=== PATIENT | female | born 1950 | race Caucasian/White ===

== ENCOUNTER 2018-09-14 16:06 | Inpatient (IN) | payer OTHER ==
--- NOTE | 2018-09-14 17:13 | PDOC ---
History of Present Illness - General Chief Complaint: Shortness of Breath Stated Complaint: shortness of breath and palpitations Time Seen by Provider: 09/14/18 16:08 History Source: Patient Exam Limitations: No Limitations - History of Present Illness Initial Comments: 09/14/18 17:00 67 yo female pmh of HTN, HLD, hypothyroidism, s/p left breast lumpectomy with chemo/radiation and metastatic chemistry associate CA (scheduled for surgery 09/22/2018 at [facility] for resection, stopped taking ASA 1 week ago) presents to the ED for 4 days of worsening SOB on exertion. Pt states she has had mild SOB when walking up flights of stairs in the past, however over the last 4 days, walking 1 block has led to SOB with palpitations. Denies CP, back pain, recent travel, calf tenderness, N/V/F/C, abdominal pain, BALBUENA, dizziness, diaphoresis. Past History - Past Medical History Allergies/Adverse Reactions: Allergies Allergy/AdvReac Type Severity Reaction Status Date / Time No Known Allergies Allergy Verified 09/14/18 16:08 Home Medications: Ambulatory Orders Anastrozole [Arimidex] 1 mg PO DAILY 09/14/18 Atenolol/Chlorthalidone [Atenolol-Chlorthalidone 100-25] 1 each PO DAILY Levothyroxine [Synthroid -] 25 mcg PO DAILY 09/14/18 Omeprazole 20 mg PO DAILY 09/14/18 Rosuvastatin [Crestor -] 5 mg PO HS 09/14/18 Cancer: Yes (uterus scheduled for sx on 10/22/18) COPD: No GI Disorders: Yes (GERD) HTN: Yes Hypercholesterolemia: Yes Thyroid Disease: Yes - Suicide/Smoking/Psychosocial Hx Smoking History: Never smoked Hx Alcohol Use: No Drug/Substance Use Hx: No Review of Systems - Review of Systems Constitutional: No: Chills, Fever Respiratory: Yes: SOB with Exertion. No: Wheezing, Productive cough, Hemoptysis Cardiac (ROS): Yes: Palpitations (on exertion). No: Chest Pain ABD/GI: No: Constipated, Diarrhea, Nausea, Vomiting, Abdominal cramping : No: Burning, Dysuria, Flank Pain Musculoskeletal: No: Back Pain Neurological: No: Headache, Numbness, Tingling, Unsteady Gait *Physical Exam - Vital Signs Last Vital Signs Temp Pulse Resp BP Pulse Ox 97.7 F 83 20 132/72 95 09/14/18 16:07 09/14/18 16:07 09/14/18 16:07 09/14/18 16:07 09/14/18 16:07 - Physical Exam General Appearance: Yes: Nourished, Appropriately Dressed. No: Apparent Distress HEENT: positive: EOMI Neck: positive: Supple. negative: Carotid bruit Respiratory/Chest: positive: Lungs Clear, Normal Breath Sounds. negative: Accessory Muscle Use, Crackles, Rales, Rhonchi, Stridor, Wheezing Cardiovascular: positive: Regular Rhythm, Regular Rate, S1, S2. negative: Edema , JVD, Murmur Vascular Pulses: Dorsalis-Pedis (R): 3+, Doralis-Pedis (L): 3+ Gastrointestinal/Abdominal: positive: Flat, Soft. negative: Pulsatile Mass, Protuberent, Distended, Guarding, Rebound, Tenderness Extremity: positive: Normal Capillary Refill, Swelling (right calf larger than left) Integumentary: positive: Normal Color, Dry, Warm. negative: Diaphoresis Neurologic: positive: Fully Oriented, Alert, Normal Mood/Affect, Normal Response ED Treatment Course - LABORATORY CBC & Chemistry Diagram: 09/19/18 05:30 09/19/18 05:30 Medical Decision Making - Medical Decision Making 09/14/18 19:10 67 yo female pmh of HTN, HLD, hypothyroidism, s/p left breast lumpectomy with chemo/radiation and metastatic chemistry associate CA (scheduled for surgery 09/22/2018 at [facility] for resection, stopped taking ASA 1 week ago) presents to the ED for 4 days of worsening SOB on exertion. Pt states she has had mild SOB when walking up flights of stairs in the past, however over the last 4 days, walking 1 block has led to SOB with palpitations. Denies CP, back pain, recent travel, calf tenderness, N/V/F/C, abdominal pain, BALB[place], dizziness, diaphoresis. Vitals wnl DDX INLT: DVT/PE, CHF, ACS, DVT right common femoral and deep vein found Trop elevated BNP 4000s Pt saturating 92 on RA, 98-100 on 2L CTA ordered to r/o PE 09/14/18 19:44 Bilateral pulmonary PE noted on ED CTA read with evidence of right heart strain , pt given Lovenox weight based, ICU call placed and [employer] sent. Pending response from admitting team Pt aware, vitals continue to be stable Pt s/o to night team for further care *DC/Admit/Observation/Transfer Diagnosis at time of Disposition: Pulmonary embolism, DVT (deep venous thrombosis) - Discharge Dispostion Disposition: TRANSFER ACUTE CARE/OTHER HOSP Condition at time of disposition: Guarded - Referrals - Patient Instructions - Post Discharge Activity
--- NOTE | 2018-09-14 17:13 | PDOC ---
Attending Attestation - Resident Resident Name: Porfirio Nelson - ED Attending Attestation I have performed the following: I have examined & evaluated the patient, The case was reviewed & discussed with the resident, I agree w/resident's findings & plan, Exceptions are as noted - HPI HPI: 09/14/18 16:30 67yo F hx HTN, HL, hypothyroidism, breast ca s/p lumpectomy, chemo and radiation , metastic [employer] cancer (unknown primary) with mets to the omentum presents to the ED with progressive SOB x 4 days. Pt reports exercise tolerance is reduced to a block which is abnormal for her as she can normally walk a quarter mile to work without any issues. +associated palpitations. Denies CP, back pain, dizziness, N/V/D, abd pain, LE edema, focal weakness/numbness, headache. Pt states she is due to have surgery for her [employer] cancer at [facility] [place] on 09/22. She had a CT chest recently to r/o metastasis in - Physicial Exam PE: 09/14/18 16:38 GENERAL: Awake, alert, and fully oriented, in no acute distress. Speaking in full sentences HEAD: No signs of trauma EYES: PERRLA, EOMI, sclera anicteric, conjunctiva clear ENT: Moist mucosa LUNGS: Breath sounds equal, clear to auscultation bilaterally. No wheezes, and no crackles. Tachypneic to 25 HEART: Regular rate and rhythm, normal S1 and S2, no murmurs, rubs or gallops ABDOMEN: Soft, nontender, normoactive bowel sounds. No guarding, no rebound. No masses EXTREMITIES: R>L LE non pitting edema, WWP NEUROLOGICAL: Normal speech, cranial nerves intact, equal strength and sensation b/l SKIN: Warm, Dry, normal turgor, no rashes or lesions noted. - Critical Care Time Total Critical Care Time: 60 Critical Care Statement: The care of this patient involved high complexity decision making to prevent further life threatening deterioration of the patient 's condition and/or to evaluate & treat vital organ system(s) failure or risk of failure. - Medical Decision Making 09/14/18 16:44 67yo F hx metastatic [employer] ca currently undergoing w/u at [facility] presents to the ED with progressive CAAL for 4 days Pt tachypneic to 20s, but no tachycardia, hypoxia or hypotension Exam with R>L LE edema EKG with lateral ischemia, no ANA History/presentation highly concerning for DVT/PE Plan for labs, B/l LE DVT, CTA chest, likely admit 09/14/18 18:14 Labs thus far unremarkable CTA ordered, radiology tach has been called in from home Pt is hemodynamically stable, BP 138/84, HR 74, O2 sat 100% 2L, RR 20 09/14/18 18:38 Trop+ 1, likely 2/2 RHS from presumed PE 09/14/18 18:40 US + for R common and deep femoral vein DVTs In light of metastatic disease, will obtain CTH to eval for brain mets prior to initiating AC Pt remains hemodynamically stable, BP 124/80, HR 78, O2 sat 100% 2L, RR 24 Spoke 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 Lovenox 1mg/kg ordered All results explained to pt Awaiting CTA chest images, pt likely to need transfer to [facility] ICU Pt remains hemodynamically stable, BP 130/80, HR 80, O2 sat 100% 2L, RR 24 Case signed out to Dr. Mao for further mgmt/dispo Heart Score/ECG Review - History History: Slightly suspicious - Electrocardiogram EKG: Non specific repolarization disturbance - Age Age: >/= 65 - Risk Factors Risk Factors Heart Score: Yes Hx Hypercholesterolemia, Yes Hx Hypertension, Yes Hx Obesity Based on the list above the patient has:: >/=3 risk factors or Hx atherosclerotic disease - Troponin Troponin: </= normal limit - Score Heart Score - Total: 5 #1 09/14/18 16:50 EKG read and interpreted by me: NSR, rate 86. Normal axis and intervals. +sub mm to 1mm STD V4-V6
[2018-09-14 17:32] LABS: HEMATOCRIT 35.6 % (32.4-45.2); HEMOGLOBIN 12.1 GM/dl (10.7-15.3); MEAN CELL VOLUME 88.2 fl (80-96); MEAN PLT VOLUME 7.7 fl (7.5-11.1); PLATELET COUNT 284 K/MM3 (134-434); RBC 4.03 M/mm3 (3.60-5.2); RDW 13.7 % (11.6-15.6); WHITE BLOOD COUNT 17.2 K/mm3 (4.0-10.8)
[2018-09-14 17:43] LABS: ACTIVATED PTT 25.8 SECONDS (25.2-36.5)
[2018-09-14 17:44] LABS: MAGNESIUM 1.7 mg/dL (1.8-2.4)
[2018-09-14 17:45] LABS: ALBUMIN 3.2 g/dl (3.4-5.0); ALK PHOS 108 U/L (45-117); ANION GAP 13 MMOL/L (8-16); BILIRUBIN,TOTAL 1.3 mg/dl (0.2-1); BLOOD UREA NITROGEN 11 mg/dl (7-18); CALCIUM 8.7 mg/dl (8.5-10); CHLORIDE 99 mmol/L (98-107); CO2 25 mmol/L (21-32); CREATININE 0.8 mg/dl (0.55-1.3); GLUCOSE,RANDOM 100 mg/dl (74-106); POTASSIUM 3.5 mmol/L (3.5-5.1); SGOT/AST 39 U/L (15-37); SGPT/ALT 17 U/L (13-61); SODIUM 137 mmol/L (136-145)
[2018-09-14 17:48] LABS: INR 1.34 (0.82-1.09); PROTHROMBIN TIME (PATIENT) 14.9 SEC (10.2-13.0)
[2018-09-14 18:48] LABS: VENOUS PC02 38.5 mmHg (41-51); VENOUS PH 7.46 (7.31-7.41)
[2018-09-14 18:49] LABS: VENOUS PO2 25.1 mmHg (30-40)
[2018-09-14 18:58] LABS: N-TERMINAL BNP 4094.3 pg/ml (5-125)
[2018-09-14] MEDS ORDERED: ENOXAPARIN NA (PORCINE) 100 MG/1 ML DISP.SYRIN SQ ONE ×2 (19:08→19:20)
[2018-09-14 19:16] LABS: PLATELET ESTIMATE ADEQUATE
--- NOTE | 2018-09-14 19:27 | PDOC ---
*Physical Exam - Vital Signs Last Vital Signs Temp Pulse Resp BP Pulse Ox 97.7 F 83 34 H 144/87 99 09/14/18 16:07 09/14/18 19:01 09/14/18 19:01 09/14/18 19:01 09/14/18 19:01 ED Treatment Course - LABORATORY CBC & Chemistry Diagram: 09/14/18 17:03 09/14/18 17:03 - ADDITIONAL ORDERS Additional order review: Laboratory Results 09/14/18 09/14/18 09/14/18 17:03 17:03 17:03 PT with INR 14.9 H INR 1.34 H PTT (Actin FS) 25.8 VBG pH POC VBG pCO2 POC VBG pO2 VBG HCO3 VBG O2 Sat (Carter) VBG Base Excess Sodium Potassium Chloride Carbon Dioxide Anion Gap BUN Creatinine Creat Clearance w eGFR Random Glucose Calcium Magnesium 1.7 L Total Bilirubin AST ALT Alkaline Phosphatase Creatine Kinase 93 Troponin I 1.10 H* B-Natriuretic Peptide Total Protein Albumin TSH 3.86 H 09/14/18 09/14/18 17:03 17:03 PT with INR INR PTT (Actin FS) VBG pH 7.46 H POC VBG pCO2 38.5 L POC VBG pO2 25.1 L VBG HCO3 26.8 VBG O2 Sat (Carter) 37.6 L VBG Base Excess 3.3 H Sodium 137 Potassium 3.5 Chloride 99 Carbon Dioxide 25 Anion Gap 13 BUN 11 Creatinine 0.8 Creat Clearance w eGFR 71.76 Random Glucose 100 Calcium 8.7 Magnesium Total Bilirubin 1.3 H AST 39 H ALT 17 Alkaline Phosphatase 108 Creatine Kinase Troponin I B-Natriuretic Peptide 4094.3 H Total Protein 8.0 Albumin 3.2 L TSH 09/14/18 17:03 RBC 4.03 MCV 88.2 MCHC 34.0 RDW 13.7 MPV 7.7 Neutrophils % No Result Required. Lymphocytes % No Result Required. Medical Decision Making - Medical Decision Making 09/14/18 20:22 Care of this patient received from Dr Phillip. This 67-year-old woman with a history of HTN/HL/hypothyroidism presented with progressive shortness of breath over the last few days. Patient is currently being worked up for pelvic carcinoma of unclear etiology: Exploratory procedure scheduled for 09/22/18 and [facility]. Workup for thromboembolic process positive for right lower extremity DVT. Chest CT angiogram positive for acute central pulmonary emboluism with findings of right heart strain Findings discussed with Dr. Valiente. Noncontrast head CT of the head shows no evidence of masses or other intracranial pathology. Lovenox 100mg SQ administered Case discussed with : Because patient has been clinically stable from vascular and respiratory standpoint with no need for fluid resuscitation up to this point, although she has extensive thromboembolic pulmonary burden and potential for cardiovascular collapse, she does not strictly need ICU monitoring at this point. Patient can be admitted to telemetry bed at [facility] with ICU resident aware. Plan discussed with Dr Etienne who is not comfortable with patient not being in an intensive care unit . Consideration made to transfer to tertiary care center ,[facility] 09/14/18 20:37 Dr Cowan reconsidered decision and patient will be admitted to the ICU at [facility]. Most recent vital signs: BP 112/86, HR 80/min, pulse oximetry 97% 2 liter/minNC 09/14/18 21:16 Patient transferred awake and alert without complaints and without change in clinical condition by ALS ambulance to ICU, [facility] *DC/Admit/Observation/Transfer Diagnosis at time of Disposition: Pulmonary embolism Qualifiers: Pulmonary embolism type: other Chronicity: acute Acute cor pulmonale presence: without acute cor pulmonale Qualified Code(s): I26.99 - Other pulmonary embolism without acute cor pulmonale DVT (deep venous thrombosis) Qualifiers: DVT location: lower extremity Affected thrombotic vein of extremity: unspecified vein of extremity Chronicity: acute Laterality: right Qualified Code (s): I82.401 - Acute embolism and thrombosis of unspecified deep veins of right lower extremity - Discharge Dispostion Disposition: TRANSFER ACUTE CARE/OTHER HOSP Condition at time of disposition: Guarded Decision to Admit order: Yes - Referrals - Patient Instructions - Post Discharge Activity
--- NOTE | 2018-09-14 22:31 | HP ---
CHIEF COMPLAINT: shortness of breath PCP: HISTORY OF PRESENT ILLNESS: 67 year woman w/ remote breast ca Hx s/p lumpectomy, recently diagnosed [employer] cancer (planned surgery at [place] on 09/22/18), c/o SOB and decreased exercise tolerance for the last several days. Patient was found to be hypoxic and tachycardic in [place] ER. Lower ext duplex scan showed right lower ext DVT and right pulm artery PE. Patient is hemodynamically stable and appears comfortable. Treated with Lovenox therapeutic dose. ER course was notable for: (1) CTA (2) lower ext duplex (3) Recent Travel: no PAST MEDICAL HISTORY: recently diagnosed [employer] cancer-planned surgery at [place] on 09/22/18, remote Hx of left breast ca- s/p left lumpectomy, and radiation therapy PAST SURGICAL HISTORY: as above Social History: Smoking: quit 30 years ago Alcohol: no Drugs: no Family History: [place] Allergies No Known Allergies Allergy (Verified 09/14/18 16:08) HOME MEDICATIONS: Home Medications Medication Instructions Recorded Anastrozole [Arimidex] 1 mg PO DAILY 09/14/18 Atenolol/Chlorthalidone 1 each PO DAILY 09/14/18 [Atenolol-Chlorthalidone 100-25] Levothyroxine [Synthroid -] 25 mcg PO DAILY 09/14/18 Omeprazole 20 mg PO DAILY 09/14/18 Rosuvastatin [Crestor -] 5 mg PO HS 09/14/18 REVIEW OF SYSTEMS CONSTITUTIONAL: Absent: fever, chills, diaphoresis, generalized weakness, malaise, loss of appetite, weight change HEENT: Absent: rhinorrhea, nasal congestion, throat pain, throat swelling, difficulty swallowing, mouth swelling, ear pain, eye pain, visual changes CARDIOVASCULAR: Absent: chest pain, syncope, palpitations, irregular heart rate, lightheadedness , peripheral edema RESPIRATORY: Absent: cough, orthopnea, wheezing, stridor, hemoptysis Present- shortness of breath, dyspnea with exertion, GASTROINTESTINAL: Absent: abdominal pain, abdominal distension, nausea, vomiting, diarrhea, constipation, melena, hematochezia GENITOURINARY: Absent: dysuria, frequency, urgency, hesitancy, hematuria, flank pain, genital pain MUSCULOSKELETAL: Absent: myalgia, arthralgia, joint swelling, back pain, neck pain SKIN: Absent: rash, itching, pallor HEMATOLOGIC/IMMUNOLOGIC: Absent: easy bleeding, easy bruising, lymphadenopathy, frequent infections ENDOCRINE: Absent: unexplained weight gain, unexplained weight loss, heat intolerance, cold intolerance NEUROLOGIC: Absent: headache, focal weakness or paresthesias, dizziness, unsteady gait, seizure, mental status changes, bladder or bowel incontinence PSYCHIATRIC: Absent: anxiety, depression, suicidal or homicidal ideation, hallucinations. PHYSICAL EXAMINATION Vital Signs - 24 hr 09/14/18 09/14/18 09/14/18 16:07 17:26 17:36 Temperature 97.7 F Pulse Rate 83 Pulse Rate [ 83 Apical] Respiratory 20 32 H 26 H Rate Blood Pressure 132/72 Blood Pressure 125/86 [Arm] O2 Sat by Pulse 95 92 L 96 Oximetry (%) 09/14/18 09/14/18 19:01 19:31 Temperature Pulse Rate Pulse Rate [ 83 81 Apical] Respiratory 34 H 25 H Rate Blood Pressure Blood Pressure 144/87 124/85 [Arm] O2 Sat by Pulse 99 99 Oximetry (%) GENERAL: Awake, alert, and fully oriented, in no acute distress. HEAD: Normal with no signs of trauma. EYES: Pupils equal, round and reactive to light, extraocular movements intact, sclera anicteric, conjunctiva clear. No lid lag. EARS, NOSE, THROAT: Ears normal, nares patent, oropharynx clear without exudates. Moist mucous membranes. NECK: Normal range of motion, supple without lymphadenopathy, JVD, or masses. LUNGS: Breath sounds equal, clear to auscultation bilaterally. No wheezes, and no crackles. No accessory muscle use. HEART: Regular rate and rhythm, normal S1 and S2 , + systolic murmur ABDOMEN: Soft, nontender, not distended, normoactive bowel sounds, no guarding, no rebound, no masses. MUSCULOSKELETAL: Normal range of motion at all joints. No bony deformities or tenderness. No CVA tenderness. UPPER EXTREMITIES: 2+ pulses, warm, well-perfused. No cyanosis. No clubbing. No peripheral edema. LOWER EXTREMITIES: 2+ pulses, warm, well-perfused. No calf tenderness. No peripheral edema. NEUROLOGICAL: Cranial nerves II-XII intact. Normal speech. Normal gait. PSYCHIATRIC: Cooperative. Good eye contact. Appropriate mood and affect. SKIN: Warm, dry, normal turgor, no rashes or lesions noted, normal capillary refill. Laboratory Results - last 24 hr 09/14/18 09/14/18 09/14/18 17:03 17:03 17:03 WBC 17.2 H RBC 4.03 Hgb 12.1 Hct 35.6 MCV 88.2 MCH 30.0 MCHC 34.0 RDW 13.7 Plt Count 284 MPV 7.7 Absolute Neuts (auto) 14.2 Neutrophils % No Result Required. Neutrophils % (Manual) 92.0 H* Lymphocytes % No Result Required. Lymphocytes % (Manual) 6.0 L Monocytes % (Manual) 1 L Eosinophils % (Manual) 1.0 Platelet Estimate Adequate PT with INR INR PTT (Actin FS) VBG pH 7.46 H POC VBG pCO2 38.5 L POC VBG pO2 25.1 L VBG HCO3 26.8 VBG O2 Sat (Carter) 37.6 L VBG Base Excess 3.3 H Sodium 137 Potassium 3.5 Chloride 99 Carbon Dioxide 25 Anion Gap 13 BUN 11 Creatinine 0.8 Creat Clearance w eGFR 71.76 Random Glucose 100 Calcium 8.7 Magnesium Total Bilirubin 1.3 H AST 39 H ALT 17 Alkaline Phosphatase 108 Creatine Kinase Troponin I B-Natriuretic Peptide 4094.3 H Total Protein 8.0 Albumin 3.2 L TSH 09/14/18 09/14/18 09/14/18 17:03 17:03 17:03 WBC RBC Hgb Hct MCV MCH MCHC RDW Plt Count MPV Absolute Neuts (auto) Neutrophils % Neutrophils % (Manual) Lymphocytes % Lymphocytes % (Manual) Monocytes % (Manual) Eosinophils % (Manual) Platelet Estimate PT with INR 14.9 H INR 1.34 H PTT (Actin FS) 25.8 VBG pH POC VBG pCO2 POC VBG pO2 VBG HCO3 VBG O2 Sat (Carter) VBG Base Excess Sodium Potassium Chloride Carbon Dioxide Anion Gap BUN Creatinine Creat Clearance w eGFR Random Glucose Calcium Magnesium 1.7 L Total Bilirubin AST ALT Alkaline Phosphatase Creatine Kinase 93 Troponin I 1.10 H* B-Natriuretic Peptide Total Protein Albumin TSH 3.86 H 09/14/18 20:00 WBC RBC Hgb Hct MCV MCH MCHC RDW Plt Count MPV Absolute Neuts (auto) Neutrophils % Neutrophils % (Manual) Lymphocytes % Lymphocytes % (Manual) Monocytes % (Manual) Eosinophils % (Manual) Platelet Estimate PT with INR INR PTT (Actin FS) VBG pH POC VBG pCO2 POC VBG pO2 VBG HCO3 VBG O2 Sat (Carter) VBG Base Excess Sodium Potassium Chloride Carbon Dioxide Anion Gap BUN Creatinine Creat Clearance w eGFR Random Glucose Calcium Magnesium Total Bilirubin AST ALT Alkaline Phosphatase Creatine Kinase Troponin I 0.98 H* B-Natriuretic Peptide Total Protein Albumin TSH Imaging reviewed EKG- NSR ASSESSMENT/PLAN: #67yo woman with unspecified OBGYN malignancy, unknown stage with acute right central pulmonary embolism with findings of right heart strain on CTA, however is hemodynamically stable. + Right lower ext DVT. She will be admitted to ICU for observation. -admit to ICU -ABG -cardiac monitor technician -monitor VS closely -echo -c/w therapeutic dose of enoxaparin -pulmonary evaluation -bed rest -supplemental oxygen via [place] -check ABG #Tropnemia - likely secondary to acute PE. NO signs of acute cardiac ischemia -trend troponin -cardialogy evaluation #OBGYN malignancy -pelvic, unspecified. unknown stage. Care received at [facility] -pelvic U/S -obtain outside medical records in am #DVT ppx-high risk patient -on therapeutic lovenox already Visit type - Emergency Visit Emergency Visit: Yes ED Registration Date: 09/14/18 Care time: The patient presented to the Emergency Department on the above date and was hospitalized for further evaluation of their emergent condition. - New Patient This patient is new to me today: Yes Date on this admission: 09/15/18 - Critical Care Critical Care patient: No
--- NOTE | 2018-09-14 22:40 | CONSULT ---
Consultation: REQUESTING PROVIDER: Dr. Etienne CONSULT REQUEST: We have been asked to medically evaluate this patient for PE. 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 (planned surgery at [place] on 09/22/18), who presented at [facility] due to 2 days of shortness of breath. Patient was tachypniec and hypoxic in ER. She was found to have PE and DVT diagnosed by CTA and venous doppler. She was given 100mg lovenox and sent to [facility] ICU. Upon receiving patient, complaints of anxiety, but not in acute distress, "feeling overwhelmed from her set backs". Denies chest pain, palpitations, sob, fever, cough. HR 79 sinus. Oxygen 98 % on 2LNC. BP 113/74. RR 26. PMH: HTN, HLD, hypothyroid, left breast lumpectomy, QUOTE CLERK CA with possible mets? Social hx: denies alcohol, tobacco, drug use NKDA: allergies REVIEW OF SYSTEMS: CONSTITUTIONAL: Absent: fever, chills, diaphoresis, generalized weakness, malaise, loss of appetite, weight change HEENT: Absent: rhinorrhea, nasal congestion, throat pain, throat swelling, difficulty swallowing, mouth swelling, ear pain, eye pain, visual changes CARDIOVASCULAR: Absent: chest pain, syncope, palpitations, irregular heart rate, lightheadedness , peripheral edema RESPIRATORY: Positive: shortness of breath, dyspnea with exertion, Absent: cough, orthopnea, wheezing, stridor, hemoptysis GASTROINTESTINAL: Absent: abdominal pain, abdominal distension, nausea, vomiting, diarrhea, constipation, melena, hematochezia GENITOURINARY: Absent: dysuria, frequency, urgency, hesitancy, hematuria, flank pain, genital pain MUSCULOSKELETAL: Absent: myalgia, arthralgia, joint swelling, back pain, neck pain SKIN: Absent: rash, itching, pallor HEMATOLOGIC/IMMUNOLOGIC: Absent: easy bleeding, easy bruising, lymphadenopathy, frequent infections ENDOCRINE: Absent: unexplained weight gain, unexplained weight loss, heat intolerance, cold intolerance NEUROLOGIC: Absent: headache, focal weakness or paresthesias, dizziness, unsteady gait, seizure, mental status changes, bladder or bowel incontinence PSYCHIATRIC: Absent: anxiety, depression, suicidal or homicidal ideation, hallucinations. PHYSICAL EXAMINATION Vital Signs - 24 hr 09/14/18 09/14/18 09/14/18 16:07 17:26 17:36 Temperature 97.7 F Pulse Rate 83 Pulse Rate [ 83 Apical] Respiratory 20 32 H 26 H Rate Blood Pressure 132/72 Blood Pressure 125/86 [Arm] O2 Sat by Pulse 95 92 L 96 Oximetry (%) 09/14/18 09/14/18 09/14/18 19:01 19:31 21:48 Temperature 98.2 F Pulse Rate 80 Pulse Rate [ 83 81 Apical] Respiratory 34 H 25 H 30 H Rate Blood Pressure 124/98 Blood Pressure 144/87 124/85 [Arm] O2 Sat by Pulse 99 99 99 Oximetry (%) GENERAL: obese; Awake, alert, and fully oriented, in no acute distress. HEAD: Normal with no signs of trauma. EYES: Pupils equal, round and reactive to light, extraocular movements intact, sclera anicteric, conjunctiva clear. No lid lag. THROAT: oropharynx clear without exudates. Moist mucous membranes. NECK: Normal range of motion, supple without lymphadenopathy, JVD, or masses. LUNGS: Breath sounds equal, clear to auscultation bilaterally. No wheezes, and no crackles. No accessory muscle use. HEART: Regular rate and rhythm, normal S1 and S2 without murmur, rub or gallop. ABDOMEN: Soft, nontender, not distended, normoactive bowel sounds, no guarding, no rebound, no masses. No hepatomegaly or splenomegaly. UPPER EXTREMITIES: 2+ pulses, warm, well-perfused. No cyanosis. No clubbing. Cap refill <2 seconds. No peripheral edema. LOWER EXTREMITIES: 2+ pulses, warm, well-perfused. No calf tenderness. Right leg trace edema NEUROLOGICAL: Cranial nerves II-XII intact. Normal speech. PSYCHIATRIC: Cooperative. Good eye contact. worried/ slightly anxious SKIN: Warm, dry, normal turgor, no rashes or lesions noted. Laboratory Results - last 24 hr 09/14/18 09/14/18 09/14/18 17:03 17:03 17:03 WBC 17.2 H RBC 4.03 Hgb 12.1 Hct 35.6 MCV 88.2 MCH 30.0 MCHC 34.0 RDW 13.7 Plt Count 284 MPV 7.7 Absolute Neuts (auto) 14.2 Neutrophils % No Result Required. Neutrophils % (Manual) 92.0 H* Lymphocytes % No Result Required. Lymphocytes % (Manual) 6.0 L Monocytes % (Manual) 1 L Eosinophils % (Manual) 1.0 Platelet Estimate Adequate PT with INR INR PTT (Actin FS) VBG pH 7.46 H POC VBG pCO2 38.5 L POC VBG pO2 25.1 L VBG HCO3 26.8 VBG O2 Sat (Carter) 37.6 L VBG Base Excess 3.3 H Sodium 137 Potassium 3.5 Chloride 99 Carbon Dioxide 25 Anion Gap 13 BUN 11 Creatinine 0.8 Creat Clearance w eGFR 71.76 Random Glucose 100 Calcium 8.7 Magnesium Total Bilirubin 1.3 H AST 39 H ALT 17 Alkaline Phosphatase 108 Creatine Kinase Troponin I B-Natriuretic Peptide 4094.3 H Total Protein 8.0 Albumin 3.2 L TSH 09/14/18 09/14/18 09/14/18 17:03 17:03 17:03 WBC RBC Hgb Hct MCV MCH MCHC RDW Plt Count MPV Absolute Neuts (auto) Neutrophils % Neutrophils % (Manual) Lymphocytes % Lymphocytes % (Manual) Monocytes % (Manual) Eosinophils % (Manual) Platelet Estimate PT with INR 14.9 H INR 1.34 H PTT (Actin FS) 25.8 VBG pH POC VBG pCO2 POC VBG pO2 VBG HCO3 VBG O2 Sat (Carter) VBG Base Excess Sodium Potassium Chloride Carbon Dioxide Anion Gap BUN Creatinine Creat Clearance w eGFR Random Glucose Calcium Magnesium 1.7 L Total Bilirubin AST ALT Alkaline Phosphatase Creatine Kinase 93 Troponin I 1.10 H* B-Natriuretic Peptide Total Protein Albumin TSH 3.86 H 09/14/18 20:00 WBC RBC Hgb Hct MCV MCH MCHC RDW Plt Count MPV Absolute Neuts (auto) Neutrophils % Neutrophils % (Manual) Lymphocytes % Lymphocytes % (Manual) Monocytes % (Manual) Eosinophils % (Manual) Platelet Estimate PT with INR INR PTT (Actin FS) VBG pH POC VBG pCO2 POC VBG pO2 VBG HCO3 VBG O2 Sat (Carter) VBG Base Excess Sodium Potassium Chloride Carbon Dioxide Anion Gap BUN Creatinine Creat Clearance w eGFR Random Glucose Calcium Magnesium Total Bilirubin AST ALT Alkaline Phosphatase Creatine Kinase Troponin I 0.98 H* B-Natriuretic Peptide Total Protein Albumin TSH Active Medications Generic Name Dose Route Start Last Admin Trade Name Freq PRN Reason Stop Dose Admin Anastrozole 1 mg 09/15/18 10:00 Arimidex - PO DAILY SURAJ Chlorhexidine Gluconate 1 applic 09/15/18 22:00 Hibiclens For Decolonization - TP HS SURAJ Enoxaparin Sodium 100 mg 09/15/18 07:00 Lovenox - SQ BID@0700,1900 SURAJ Levothyroxine Sodium 25 mcg 09/15/18 07:00 Synthroid - PO DAILY@0700 SURAJ Mupirocin 1 applic 09/15/18 10:00 Bactroban Ointment (For Decolonization) - NS 09/20/18 09:59 BID SURAJ Pantoprazole Sodium 40 mg 09/15/18 10:00 Protonix - PO DAILY SURAJ Rosuvastatin Calcium 5 mg 09/15/18 22:00 Crestor - PO HS SURAJ IMAGING: CTA: Acute emboli are noted within the distal aspect of the left and right main pulmonary arteries. There is also a thin straddle embolus at the bifurcation of the main pulmonary artery trunk. The right ventricle/left ventricle diameter ratio is approximately 2 suggestive of right heart strain. Venous Doppler: Right leg DVT is identified. Specifically thrombus is visualized within the right common femoral and deep femoral veins. There is also thrombus within the greater saphenous vein. Head CT: negative for acute pathology ASSESSMENT/PLAN: This is a 67 year old female with recently diagnosed QUOTE CLERK Ca,planning for surgery at [place], presented with shortness of breath found to have PE/DVT (as above). Pulmonary embolism RLE DVT Troponemia Leukocytosis Hypomagesemia Hypothyroid Hx HTN hx HLD QUOTE CLERK CA #PE/DVT; -submassive/intermediate risk: hemodynamic stable; possible right heart strain as per CTA -100mg loveonox bid -stat ABG -stat echo; eval for right heart strain; lv function -monitor for hemodynamic instability; hypotension: systolic <90; drop in systolic bp >40mmhg; tachycardia; #elevated troponin -ML secondary to demand ischemia from PE: -ecg with non t wave falttening in lateral leads; -cont to monitor clinically for chest pain; -trops have already trended down 1.10->0.98 #leukocytossis; -ML reactive ;no fever, or signs of infection ; monitor clinically; #Hypothyroid: -cont levothyroxine; -tsh , t3, t4 #hypomagnesemia: replace DVT ppl ; on lovenox GI ppl; protonix Dispo: We will continue to follow the patient. Thank you for this consultative opportunity. Visit type - Emergency Visit Emergency Visit: Yes ED Registration Date: 09/14/18 Care time: The patient presented to the Emergency Department on the above date and was hospitalized for further evaluation of their emergent condition. - New Patient This patient is new to me today: Yes Date on this admission: 09/14/18 - Critical Care Critical Care patient: Yes Total Critical Care Time (in minutes): 35 Critical Care Statement: The care of this patient involved high complexity decision making to prevent further life threatening deterioration of the patient 's condition and/or to evaluate & treat vital organ system(s) failure or risk of failure.
[2018-09-14] MEDS ORDERED: MAGNESIUM SULF 50% (8.12 MEQ/2 ML-1 GM VIAL) IVPB ONE (23:23)
[2018-09-14 23:44] LABS: ARTERIAL BLOOD GAS BASE EXCESS 0.6 meq/l (-2-2); ARTERIAL BLOOD GAS PCO2 28.3 mmHg (35-45); ARTERIAL BLOOD GAS PO2 72.7 mmHg (80-105); ARTERIAL BLOOD GAS pH 7.51 (7.35-7.45)
[2018-09-15] MEDS: LEVOTHYROXINE NA 25 MCG TABLET (FP) PO SCH (06:24)
[2018-09-15] MEDS: ENOXAPARIN NA (PORCINE) 100 MG/1 ML DISP.SYRIN SQ SCH ×2 (06:25→18:03)
[2018-09-15 06:55] LABS: BASO % 0.3 % (0-2.0); EOS % 0.1 % (0-4.5); HEMATOCRIT 33.6 % (32.4-45.2); HEMOGLOBIN 11.4 GM/dL (10.7-15.3); MCH 29.5 pg (25.7-33.7); MEAN CELL VOLUME 86.7 fl (80-96); MEAN PLT VOLUME 7.6 fl (7.5-11.1); NEUT % 85.6 % (42.8-82.8); PLATELET COUNT 277 K/MM3 (134-434); RBC 3.88 M/mm3 (3.60-5.2); RDW 14.7 % (11.6-15.6); WHITE BLOOD COUNT 17.1 K/mm3 (4.0-10.0)
[2018-09-15 07:00] LABS: PHOSPHOROUS 3.2 mg/dL (2.5-4.9)
[2018-09-15] MEDS ORDERED: ENOXAPARIN NA (PORCINE) 100 MG/1 ML DISP.SYRIN SQ SCH (07:00)
[2018-09-15 07:09] LABS: INR 1.28 (0.83-1.09); PROTHROMBIN TIME (PATIENT) 15.2 SEC (9.7-13.0)
[2018-09-15 07:11] LABS: ACTIVATED PTT 34.6 SECONDS (25.2-36.5)
[2018-09-15 07:13] LABS: ALBUMIN 2.8 g/dl (3.4-5.0); ALK PHOS 105 U/L (45-117); ANION GAP 13 MMOL/L (8-16); BILIRUBIN,TOTAL 1.3 mg/dL (0.2-1); BLOOD UREA NITROGEN 10 mg/dL (7-18); CALCIUM 8.4 mg/dL (8.5-10.1); CHLORIDE 101 mmol/L (98-107); CO2 22 mmol/L (21-32); CREATININE 0.7 mg/dL (0.55-1.3); GLUCOSE,RANDOM 99 mg/dL (74-106); SGOT/AST 60 U/L (15-37); SGPT/ALT 18 U/L (13-61); SODIUM 136 mmol/L (136-145); TOT PROT 7.7 g/dl (6.4-8.2)
[2018-09-15] MEDS ORDERED: PT OWN MED DRAWER 7, Y5N ONE ×3 (09:08→22:20)
--- NOTE | 2018-09-15 09:33 | CON.CARD ---
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 Found to have PE and RLE DVT. Received lovenox and admitted to ICU. Shortness of breath improving, denies chest pain. - Alcohol/Substance Use Hx Alcohol Use: No - Smoking History Smoking history: Former smoker Have you smoked in the past 12 months: No Home Medications - Allergies Allergies/Adverse Reactions: Allergies Allergy/AdvReac Type Severity Reaction Status Date / Time No Known Allergies Allergy Verified 09/14/18 16:08 - Home Medications Home Medications: Ambulatory Orders Anastrozole [Arimidex] 1 mg PO DAILY 09/14/18 Atenolol/Chlorthalidone [Atenolol-Chlorthalidone 100-25] 1 each PO DAILY Levothyroxine [Synthroid -] 25 mcg PO DAILY 09/14/18 Omeprazole 20 mg PO DAILY 09/14/18 Rosuvastatin [Crestor -] 5 mg PO HS 09/14/18 Family Disease History - Family Disease History Family History: Unremarkable Review of Systems - Review of Systems Constitutional: reports: No Symptoms Eyes: reports: No Symptoms HENT: reports: No Symptoms Neck: reports: No Symptoms Cardiovascular: reports: No Symptoms Respiratory: reports: No Symptoms Gastrointestinal: reports: No Symptoms Genitourinary: reports: No Symptoms Musculoskeletal: reports: No Symptoms Integumentary: reports: No Symptoms Neurological: reports: No Symptoms Endocrine: reports: No Symptoms Hematology/Lymphatic: reports: No Symptoms Psychiatric: reports: No Symptoms Vital Signs: Vital Signs Temperature 97.8 F 09/15/18 06:00 Pulse Rate 77 09/15/18 08:00 Respiratory Rate 36 H 09/15/18 08:00 Blood Pressure 94/78 09/15/18 08:00 O2 Sat by Pulse Oximetry (%) 99 09/14/18 21:48 Constitutional: Yes: No Distress, Calm Eyes: Yes: Conjunctiva Clear, EOM Intact HENT: Yes: Atraumatic, Normocephalic Neck: Yes: Supple, Trachea Midline Respiratory: Yes: CTA Bilaterally, Tachypnea Gastrointestinal: Yes: Normal Bowel Sounds, Soft Cardiovascular: Yes: Regular Rate and Rhythm JVD: No Carotid Bruit: No PMI: Non-Displaced Heart Sounds: Yes: S1, S2 Murmur: No: Systolic Murmur Musculoskeletal: No: Back Pain Extremities: No: Cold Edema: No Peripheral Pulses WNL: Yes Peripheral Pulses: 2+ Left Doralis Pedis, 2+ Right Dorsalis Pedis Integumentary: No: Jaundice Neurological: Yes: Alert, Oriented Psychiatric: No: Agitated - Other Data Labs, Other Data: CBC, BMP 09/15/18 05:30 09/15/18 05:30 INR, PTT INR 1.28 (0.83-1.09) H 09/15/18 05:30 Troponin, BNP 09/14/18 09/14/18 09/14/18 17:03 17:03 20:00 Troponin I 1.10 H* 0.98 H* B-Natriuretic Peptide 4094.3 H Troponin, BNP 09/14/18 09/14/18 09/14/18 17:03 17:03 20:00 Troponin I 1.10 H* 0.98 H* B-Natriuretic Peptide 4094.3 H Assessment/Plan EKG: sinus, no ischemic changes, prolonged QTc CTA chest: acute central PE lower ext doppler: RLE DVT tele: sinus Pulmonary embolism, DVT - on therapeutic lovenox - echo report pending, images reviewed has dilated RV with reduced function and elevated PA pressures - has been hemodynamically stable however with RV strain, consideration of IR guided thrombolysis per critical care elevated trop - likely demand in setting of PE - echo report pending hypothyroidism - manage per primary HTN - holding home meds in setting of PE estimated critical care time 35 min
--- NOTE | 2018-09-15 09:35 | PN ---
Physical Exam: SUBJECTIVE: Patient seen this morning and reports her breathing is getting a little better. Vitals stable. OBJECTIVE: Vital Signs Temperature 97.8 F 09/15/18 06:00 Pulse Rate 77 09/15/18 08:00 Respiratory Rate 36 H 09/15/18 08:00 Blood Pressure 94/78 09/15/18 08:00 O2 Sat by Pulse Oximetry (%) 99 09/14/18 21:48 GENERAL: The patient is awake, alert, and fully oriented, in no acute distress. HEAD: Normal with no signs of trauma. EYES: PERRL, extraocular movements intact, NECK: Trachea midline, full range of motion, supple. LUNGS: Breath sounds equal, clear to auscultation bilaterally, no wheezes, no crackles, no accessory muscle use. HEART: Regular rate and rhythm, S1, S2 3+ systolic murmur at upper sternal border ABDOMEN: Soft, nontender, nondistended, normoactive bowel sounds EXTREMITIES: 2+ pulses, warm, well-perfused, no edema. No tenderness PSYCH: Normal mood, normal affect. SKIN: Warm, dry, normal turgor, no rashes or lesions noted CBCD WBC 17.1 K/mm3 (4.0-10.0) H 09/15/18 05:30 RBC 3.88 M/mm3 (3.60-5.2) 09/15/18 05:30 Hgb 11.4 GM/dL (10.7-15.3) 09/15/18 05:30 Hct 33.6 % (32.4-45.2) 09/15/18 05:30 MCV 86.7 fl (80-96) 09/15/18 05:30 MCHC 34.0 g/dl (32.0-36.0) 09/15/18 05:30 RDW 14.7 % (11.6-15.6) 09/15/18 05:30 Plt Count 277 K/MM3 (134-434) 09/15/18 05:30 MPV 7.6 fl (7.5-11.1) 09/15/18 05:30 CMP Sodium 136 mmol/L (136-145) 09/15/18 05:30 Potassium 3.0 mmol/L (3.5-5.1) L 09/15/18 05:30 Chloride 101 mmol/L (98-107) 09/15/18 05:30 Carbon Dioxide 22 mmol/L (21-32) 09/15/18 05:30 Anion Gap 13 MMOL/L (8-16) 09/15/18 05:30 BUN 10 mg/dL (7-18) 09/15/18 05:30 Creatinine 0.7 mg/dL (0.55-1.3) 09/15/18 05:30 Creat Clearance w eGFR 83.72 (>60) 09/15/18 05:30 Calcium 8.4 mg/dL (8.5-10.1) L 09/15/18 05:30 Total Bilirubin 1.3 mg/dL (0.2-1) H 09/15/18 05:30 AST 60 U/L (15-37) H 09/15/18 05:30 ALT 18 U/L (13-61) 09/15/18 05:30 Alkaline Phosphatase 105 U/L (45-117) 09/15/18 05:30 Total Protein 7.7 g/dl (6.4-8.2) 09/15/18 05:30 Albumin 2.8 g/dl (3.4-5.0) L 09/15/18 05:30 Active Medications Anastrozole (Arimidex -) 1 mg PO DAILY [facility] Chlorhexidine Gluconate (Hibiclens For Decolonization -) 1 applic TP HS [facility] Enoxaparin Sodium (Lovenox -) 100 mg SQ BID@0700,1900 [facility] Last Admin: 09/15/18 06:25 Dose: 100 mg Potassium Chloride (Potassium Chloride 10 Meq Premix Ivpb -) 10 meq in 100 mls @ 100 mls/hr IVPB Q60M [facility] Stop: 09/15/18 11:14 Levothyroxine Sodium (Synthroid -) 25 mcg PO DAILY@0700 [facility] Last Admin: 09/15/18 06:24 Dose: 25 mcg Mupirocin (Bactroban Ointment (For Decolonization) -) 1 applic NS BID [facility] Stop: 09/20/18 09:59 Pantoprazole Sodium (Protonix -) 40 mg PO DAILY [facility] Rosuvastatin Calcium (Crestor -) 5 mg PO HS [facility] ASSESSMENT/PLAN Patient is a 67 y/o female with a history of 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 Neuro - intact - A& O x3 - head CT: no abnormalities Cardio - R heart strain 2/2 to PE - EKG without any abnormalities - Echo: severe tricuspid regurg, RV systolic pressure elevated 50-60, RV severly dilated - continue rosuvastatin 5 mg po hs - tropinemia 2/2 to heart strain Pulm - CTA: acute central pulmonary embolism with right heart strain - patient on 100 lovenox BID - patient undergoing IVC placement for R leg DVT - patient needs thrombolysis of clot, primary team to transfer GI/ - hx cancer, surgery scheduled for 09/22 at [facility] [place] - continue anastrozole Renal - stable Heme - on ppx with Lovenox 100 BID - US: R common femoral and deep femoral clot Endo - hx hypothyroidism - continue levothyroxine 25 mcg FEN - regular diet - potassium repleted with 10 meq , 40 Kdur Dispo : transfer, location pending Visit type - Emergency Visit Emergency Visit: No - New Patient This patient is new to me today: Yes Date on this admission: 09/15/18 - Critical Care Critical Care patient: Yes Total Critical Care Time (in minutes): 40 Critical Care Statement: The care of this patient involved high complexity decision making to prevent further life threatening deterioration of the patient 's condition and/or to evaluate & treat vital organ system(s) failure or risk of failure.
--- NOTE | 2018-09-15 09:42 | EKG ---
Test Reason : Blood Pressure : / mmHG Vent. Rate : 086 BPM Atrial Rate : 086 BPM P-R Int : 130 ms QRS Dur : 082 ms QT Int : 380 ms P-R-T Axes : 050 068 026 degrees QTc Int : 454 ms NORMAL SINUS RHYTHM T WAVE ABNORMALITY, CONSIDER LATERAL ISCHEMIA ABNORMAL ECG NO PREVIOUS ECGS AVAILABLE Confirmed by ROSENDO GARLAND, PRINCE ([id number]) on 09/15/2018 9:42:42 AM Referred By: SANGITA FERNANDEZ Confirmed By:PRINCE ROBBINS MD
[2018-09-15] MEDS: ANASTROZOLE 1 MG TABLET PO SCH (09:45)
[2018-09-15] MEDS: KCL 10 MEQ IVPB 10 MEQ/100 ML INFUS.BAG IVPB SCH ×3 (09:45→14:10)
[2018-09-15] MEDS: PANTOPRAZOLE 40 MG TABLET (FP) PO SCH (09:46)
[2018-09-15] MEDS ORDERED: MUPIROCIN 2% TOPICAL OINTMENT FOR DECOLONIZATION NS SCH (10:00)
--- NOTE | 2018-09-15 10:24 | EKG ---
Test Reason : Blood Pressure : / mmHG Vent. Rate : 077 BPM Atrial Rate : 077 BPM P-R Int : 124 ms QRS Dur : 084 ms QT Int : 478 ms P-R-T Axes : 037 066 043 degrees QTc Int : 540 ms NORMAL SINUS RHYTHM T WAVE ABNORMALITY, CONSIDER ANTERIOR ISCHEMIA PROLONGED QT ABNORMAL ECG NO PREVIOUS ECGS AVAILABLE Confirmed by PRINCE ROBBINS MD ([id number]) on 09/15/2018 10:23:30 AM Referred By: Magno ANGUIANO Confirmed By:PRINCE ROBBINS MD
[2018-09-15] MEDS ORDERED: POTASSIUM CHLORIDE TABS 20 MEQ TABLET.ER (FP) PO ONE (11:30)
[2018-09-15] MEDS: MUPIROCIN 2% TOPICAL OINTMENT FOR DECOLONIZATION NS SCH ×2 (11:36→22:21)
--- NOTE | 2018-09-15 12:05 | PN ---
Teaching Attending Note Name of Resident: Vidhi Vo ATTENDING PHYSICIAN STATEMENT I saw and evaluated the patient. I reviewed the resident's note and discussed the case with the resident. I agree with the resident's findings and plan as documented. SUBJECTIVE: Pt seen and examined in the ICU. Still with dyspnea at rest. No chest pain or palpitations. Echocardiogram prelim read showing evidence of right heart dilatation and strain. OBJECTIVE: Vital Signs Period Temp Pulse Resp BP Sys/Briones Pulse Ox Last 24 Hr 97.7 F-98.7 F 69-86 20-37 94-144/67-98 92-99 Intake & Output 09/12/18 09/13/18 09/14/18 09/15/18 23:59 23:59 23:59 23:59 Intake Total 100 Output Total 100 300 Balance -100 -200 Weight 99.473 kg 98.43 kg Gen: tachypneic at rest Heart: RRR Lung: decreased breath sounds at the bases Abd: soft, nontender Ext: no edema CBC, BMP 09/15/18 05:30 09/15/18 05:30 Active Medications Anastrozole (Arimidex -) 1 mg PO DAILY [facility] Last Admin: 09/15/18 09:45 Dose: 1 mg Chlorhexidine Gluconate (Hibiclens For Decolonization -) 1 applic TP HS [facility] Enoxaparin Sodium (Lovenox -) 100 mg SQ BID@0700,1900 [facility] Last Admin: 09/15/18 06:25 Dose: 100 mg Levothyroxine Sodium (Synthroid -) 25 mcg PO DAILY@0700 [facility] Last Admin: 09/15/18 06:24 Dose: 25 mcg Mupirocin (Bactroban Ointment (For Decolonization) -) 1 applic NS BID [facility] Stop: 09/20/18 09:59 Last Admin: 09/15/18 11:36 Dose: 1 applic Pantoprazole Sodium (Protonix -) 40 mg PO DAILY [facility] Last Admin: 09/15/18 09:46 Dose: 40 mg Rosuvastatin Calcium (Crestor -) 5 mg PO HS [facility] ASSESSMENT AND PLAN: Acute Bilateral Submassive Pulmonary Emboli Acute RLE DVT +Troponins likely from above Uterine Cancer h/o Breast Ca HTN Hypothyroidism Hypercholesterolemia - continue anticoagulation - will need catheter directed thrombolysis, unavailable at this facility at this time so would transfer out - IVC filter placement prior to transfer - O2 to keep SpO2 >90% - f/u official echocardiogram - replete lytes - continue ICU monitoring critical care time spent in reviewing chart, evaluating patient and formulating plan 35 min
--- NOTE | 2018-09-15 12:18 | ECHO ---
Name: VARINDER SANTANA Exam:Adult Echocardiogram Study Date: 09/15/2018 08:53 AM Age: 67 yrs Reason For Study: right heart strain Height: 67 in Weight: 217 lb BSA: 2.1 m2 MMode/2D Measurements & Calculations IVSd: 0.84 cm Ao root diam: 2.3 cm LVIDd: 4.0 cm LA dimension: 3.1 cm LVIDs: 2.6 cm LVPWd: 0.77 cm EDV(Teich): 68.6 ml LVOT diam: 2.0 cm ESV(Teich): 23.8 ml Doppler Measurements & Calculations MV E max alexis: 43.7 cm/sec Ao V2 max: 171.0 cm/sec MV A max alexis: 68.9 cm/sec Ao max P.7 mmHg MV E/A: 0.63 MV dec time: 0.14 sec JESSA(V,D): 2.7 cm2 LV V1 max P.0 mmHg TR max alexis: 334.3 cm/sec LV V1 max: 149.9 cm/sec TR max P.8 mmHg PA V2 max: 70.6 cm/sec Med Peak E' Alexis: 7.6 cm/sec PA max P.0 mmHg Med E/e': 5.7 Lat Peak E' Alexis: 8.2 cm/sec Lat E/e': 5.4 PI Vmax: 145.2 cm/sec Procedure A two-dimensional transthoracic echocardiogram with color flow and Doppler was performed. The study w as technically difficult with many images being suboptimal in quality. Left Ventricle The left ventricular size, thickness and function are normal. The left ventricle is not well visualiz ed. The left ventricular ejection fraction is normal. E/A reversal consistent with but not diagnostic of poor LV compliance. Regional wall motion abnormalities cannot be excluded due to limited visualization. Right Ventricle The right ventricle is severely dilated. The right ventricle is not well visualized. The right ventri cular systolic function is moderate to severely reduced. Atria The left atrial size is normal. The right atrium is moderate to severely dilated. Mitral Valve The mitral valve is not well visualized. There is no mitral valve stenosis. There is mild mitral regurgitation. Tricuspid Valve There is mild tricuspid valve thickening. There is no tricuspid stenosis. There is severe tricuspid regurgitation. Right ventricular systolic pressure is elevated at 50-60mmHg. Aortic Valve The aortic valve is normal in structure and function. No hemodynamically significant valvular aortic stenosis. No aortic regurgitation is present. Pulmonic Valve The pulmonic valve is not well visualized. There is no pulmonic valvular stenosis. Mild pulmonic valv ular regurgitation. Great Vessels The aortic root is normal size. Pericardium/Pleura There is no pericardial effusion. Interpretation Summary The left ventricular size, thickness and function are normal The left ventricular ejection fraction is normal. There is severe tricuspid regurgitation. Right ventricular systolic pressure is elevated at 50-60mmHg. The right ventricle is severely dilated. The right ventricular systolic function is moderate to severely reduced. The left atrial size is normal. The right atrium is moderate to severely dilated. E/A reversal consistent with but not diagnostic of poor LV compliance Regional wall motion abnormalities cannot be excluded due to limited visualization. The study was technically difficult with many images being suboptimal in quality. The left ventricle is not well visualized. The right ventricle is not well visualized. There is mild mitral regurgitation. MD Carter Payne 09/15/2018 12:17 PM
--- NOTE | 2018-09-15 13:14 | PN ---
Teaching Attending Note Name of Resident: Jose Escalante ATTENDING PHYSICIAN STATEMENT I saw and evaluated the patient. I reviewed the resident's note and discussed the case with the resident. I agree with the resident's findings and plan as documented. SUBJECTIVE: Feels well - no further SOB. Denies CP/palpitations. OBJECTIVE: Afebrile, Hemodynamically Stable. Last Vital Signs Temp Pulse Resp BP Pulse Ox 98.4 F 83 27 H 133/80 99 09/15/18 12:00 09/15/18 12:15 09/15/18 12:15 09/15/18 12:15 09/15/18 12:15 HEENT - Atraumatic, Normocephalic. Heart - S1, S2, SM Lungs - clear to auscultation Abdomen- Soft, non-tender. Bowel Sounds normal. Extremities - no edema. Laboratory Results - last 24 hr 09/14/18 09/14/18 09/14/18 17:03 17:03 17:03 WBC 17.2 H RBC 4.03 Hgb 12.1 Hct 35.6 MCV 88.2 MCH 30.0 MCHC 34.0 RDW 13.7 Plt Count 284 MPV 7.7 Absolute Neuts (auto) 14.2 Neutrophils % No Result Required. Neutrophils % (Manual) 92.0 H* Lymphocytes % No Result Required. Lymphocytes % (Manual) 6.0 L Monocytes % Monocytes % (Manual) 1 L Eosinophils % Eosinophils % (Manual) 1.0 Basophils % Nucleated RBC % Platelet Estimate Adequate PT with INR INR PTT (Actin FS) Puncture Site ABG pH ABG pCO2 at Pt Temp ABG pO2 at Pt Temp ABG HCO3 ABG O2 Sat (Measured) ABG O2 Content ABG Base Excess Michael Test VBG pH 7.46 H POC VBG pCO2 38.5 L POC VBG pO2 25.1 L VBG HCO3 26.8 VBG O2 Sat (Carter) 37.6 L VBG Base Excess 3.3 H O2 Delivery Device Oxygen Flow Rate Sodium 137 Potassium 3.5 Chloride 99 Carbon Dioxide 25 Anion Gap 13 BUN 11 Creatinine 0.8 Creat Clearance w eGFR 71.76 Random Glucose 100 Calcium 8.7 Phosphorus Magnesium Total Bilirubin 1.3 H AST 39 H ALT 17 Alkaline Phosphatase 108 Creatine Kinase Troponin I B-Natriuretic Peptide 4094.3 H Total Protein 8.0 Albumin 3.2 L TSH 09/14/18 09/14/18 09/14/18 17:03 17:03 17:03 WBC RBC Hgb Hct MCV MCH MCHC RDW Plt Count MPV Absolute Neuts (auto) Neutrophils % Neutrophils % (Manual) Lymphocytes % Lymphocytes % (Manual) Monocytes % Monocytes % (Manual) Eosinophils % Eosinophils % (Manual) Basophils % Nucleated RBC % Platelet Estimate PT with INR 14.9 H INR 1.34 H PTT (Actin FS) 25.8 Puncture Site ABG pH ABG pCO2 at Pt Temp ABG pO2 at Pt Temp ABG HCO3 ABG O2 Sat (Measured) ABG O2 Content ABG Base Excess Michael Test VBG pH POC VBG pCO2 POC VBG pO2 VBG HCO3 VBG O2 Sat (Carter) VBG Base Excess O2 Delivery Device Oxygen Flow Rate Sodium Potassium Chloride Carbon Dioxide Anion Gap BUN Creatinine Creat Clearance w eGFR Random Glucose Calcium Phosphorus Magnesium 1.7 L Total Bilirubin AST ALT Alkaline Phosphatase Creatine Kinase 93 Troponin I 1.10 H* B-Natriuretic Peptide Total Protein Albumin TSH 3.86 H 09/14/18 09/14/18 09/15/18 20:00 23:30 05:30 WBC 17.1 H RBC 3.88 Hgb 11.4 Hct 33.6 MCV 86.7 MCH 29.5 MCHC 34.0 RDW 14.7 Plt Count 277 MPV 7.6 Absolute Neuts (auto) 14.7 H Neutrophils % 85.6 H Neutrophils % (Manual) Lymphocytes % 7.0 L Lymphocytes % (Manual) Monocytes % 7.0 Monocytes % (Manual) Eosinophils % 0.1 Eosinophils % (Manual) Basophils % 0.3 Nucleated RBC % 0 Platelet Estimate PT with INR INR PTT (Actin FS) Puncture Site Right radial ABG pH 7.51 H ABG pCO2 at Pt Temp 28.3 L ABG pO2 at Pt Temp 72.7 L ABG HCO3 22.5 ABG O2 Sat (Measured) 95.0 ABG O2 Content 15.3 ABG Base Excess 0.6 Michael Test No Result Required. VBG pH POC VBG pCO2 POC VBG pO2 VBG HCO3 VBG O2 Sat (Carter) VBG Base Excess O2 Delivery Device N/c Oxygen Flow Rate 2lpm Sodium Potassium Chloride Carbon Dioxide Anion Gap BUN Creatinine Creat Clearance w eGFR Random Glucose Calcium Phosphorus Magnesium Total Bilirubin AST ALT Alkaline Phosphatase Creatine Kinase Troponin I 0.98 H* B-Natriuretic Peptide Total Protein Albumin TSH 09/15/18 09/15/18 09/15/18 05:30 05:30 05:30 WBC RBC Hgb Hct MCV MCH MCHC RDW Plt Count MPV Absolute Neuts (auto) Neutrophils % Neutrophils % (Manual) Lymphocytes % Lymphocytes % (Manual) Monocytes % Monocytes % (Manual) Eosinophils % Eosinophils % (Manual) Basophils % Nucleated RBC % Platelet Estimate PT with INR 15.20 H INR 1.28 H PTT (Actin FS) 34.6 Puncture Site ABG pH ABG pCO2 at Pt Temp ABG pO2 at Pt Temp ABG HCO3 ABG O2 Sat (Measured) ABG O2 Content ABG Base Excess Michael Test VBG pH POC VBG pCO2 POC VBG pO2 VBG HCO3 VBG O2 Sat (Carter) VBG Base Excess O2 Delivery Device Oxygen Flow Rate Sodium 136 Potassium 3.0 L Chloride 101 Carbon Dioxide 22 Anion Gap 13 BUN 10 Creatinine 0.7 Creat Clearance w eGFR 83.72 Random Glucose 99 Calcium 8.4 L Phosphorus 3.2 Magnesium 2.0 Total Bilirubin 1.3 H AST 60 H ALT 18 Alkaline Phosphatase 105 Creatine Kinase Troponin I B-Natriuretic Peptide Total Protein 7.7 Albumin 2.8 L TSH Current Medications Generic Name Dose Route Start Last Admin Trade Name Freq PRN Reason Stop Dose Admin Anastrozole 1 mg 09/15/18 10:00 09/15/18 09:45 Arimidex - PO 1 mg DAILY [facility] Administration Chlorhexidine Gluconate 1 applic 09/15/18 22:00 Hibiclens For Decolonization - TP HS [facility] Enoxaparin Sodium 100 mg 09/15/18 07:00 09/15/18 06:25 Lovenox - SQ 100 mg BID@0700,1900 [facility] Administration Levothyroxine Sodium 25 mcg 09/15/18 07:00 09/15/18 06:24 Synthroid - PO 25 mcg DAILY@0700 [facility] Administration Mupirocin 1 applic 09/15/18 10:00 09/15/18 11:36 Bactroban Ointment (For Decolonization) - NS 09/20/18 09:59 1 applic BID [facility] Administration Pantoprazole Sodium 40 mg 09/15/18 10:00 09/15/18 09:46 Protonix - PO 40 mg DAILY [facility] Administration Rosuvastatin Calcium 5 mg 09/15/18 22:00 Crestor - PO HS [facility] Home Medications Medication Instructions Recorded Anastrozole [Arimidex] 1 mg PO DAILY 09/14/18 Atenolol/Chlorthalidone 1 each PO DAILY 09/14/18 [Atenolol-Chlorthalidone 100-25] Levothyroxine [Synthroid -] 25 mcg PO DAILY 09/14/18 Omeprazole 20 mg PO DAILY 09/14/18 Rosuvastatin [Crestor -] 5 mg PO HS 09/14/18 ASSESSMENT AND PLAN: 67 year old female with history of Breast Ca s/p Lumpectomy, recently diagnosed Uterine Ca (scheduled for Surgery at [facility] [place] 09/22/18), presented with Dyspnea, found to be hypoxic and tachycardic at [facility] ED with Bilateral Submassive PE, and transferred to [facility] ICU. 1. Acute Bilateral Submassive PE with RLE DVT CTA Chest - acute central PE with findings of R heart strain Elevated Troponin (0.10) and BNP (4094) due to demand/RV strain Supplemental O2. Lovenox SQ anticoagulation Telemonitoring Echo shows RV dilatation, elevated RVSP, reduced RV systolic function, severe TR Eval by Pulmonary/[place] - recommend IVC filter and catheter directed thrombolysis, for which she needs transfer. Case discussed with Patient's RECRUITMENT MANAGER-ONC Dr. Black at [facility] [place] who accepted the patient for transfer once appropriate bed becomes available. 2. Uterine Ca Discussed with Dr. Black of [facility] [place] - accepted for transfer - awaiting bed. 3. HTN - Atenolol/Chlorthalidone held due to bilateral submassive PE with RV strain 4. Hypothyroidism - Continue Synthroid 5. HLD - on Crestor. 6. Hx Breast Ca s/p lumpectomy - Continue Anastrazole. 7. Hypokalemia - repleted.
[2018-09-15] MEDS ORDERED: ACETAMINOPHEN 325 MG TABLET (FP) PO PRN ×2 (14:30→14:38)
--- NOTE | 2018-09-15 17:13 | PN ---
Physical Exam: SUBJECTIVE: Patient seen and examined OBJECTIVE: Vital Signs Period Temp Pulse Resp BP Sys/Briones Pulse Ox Last 24 Hr 97.8 F-101.6 F 69-87 25-41 94-144/67-98 92-99 GENERAL: The patient is awake, alert, and fully oriented, in no acute distress. HEAD: Normal with no signs of trauma. EYES: PERRL, extraocular movements intact, sclera anicteric, conjunctiva clear. No ptosis. ENT: Ears normal, nares patent, oropharynx clear without exudates, moist mucous membranes. NECK: Trachea midline, full range of motion, supple. LUNGS: Breath sounds equal, clear to auscultation bilaterally, no wheezes, no crackles, no accessory muscle use. HEART: Regular rate and rhythm, S1, S2 without murmur, rub or gallop. ABDOMEN: Soft, nontender, nondistended, normoactive bowel sounds, no guarding, no rebound, no hepatosplenomegaly, no masses. EXTREMITIES: 2+ pulses, warm, well-perfused, no edema. NEUROLOGICAL: Cranial nerves II through XII grossly intact. Normal speech, gait not observed. PSYCH: Normal mood, normal affect. SKIN: Warm, dry, normal turgor, no rashes or lesions noted Laboratory Results - last 24 hr 09/14/18 09/14/18 09/14/18 17:03 17:03 17:03 WBC 17.2 H RBC 4.03 Hgb 12.1 Hct 35.6 MCV 88.2 MCH 30.0 MCHC 34.0 RDW 13.7 Plt Count 284 MPV 7.7 Absolute Neuts (auto) 14.2 Neutrophils % No Result Required. Neutrophils % (Manual) 92.0 H* Lymphocytes % No Result Required. Lymphocytes % (Manual) 6.0 L Monocytes % Monocytes % (Manual) 1 L Eosinophils % Eosinophils % (Manual) 1.0 Basophils % Nucleated RBC % Platelet Estimate Adequate PT with INR INR PTT (Actin FS) Puncture Site ABG pH ABG pCO2 at Pt Temp ABG pO2 at Pt Temp ABG HCO3 ABG O2 Sat (Measured) ABG O2 Content ABG Base Excess Michael Test VBG pH 7.46 H POC VBG pCO2 38.5 L POC VBG pO2 25.1 L VBG HCO3 26.8 VBG O2 Sat (Carter) 37.6 L VBG Base Excess 3.3 H O2 Delivery Device Oxygen Flow Rate Sodium 137 Potassium 3.5 Chloride 99 Carbon Dioxide 25 Anion Gap 13 BUN 11 Creatinine 0.8 Creat Clearance w eGFR 71.76 Random Glucose 100 Calcium 8.7 Phosphorus Magnesium Total Bilirubin 1.3 H AST 39 H ALT 17 Alkaline Phosphatase 108 Creatine Kinase Troponin I B-Natriuretic Peptide 4094.3 H Total Protein 8.0 Albumin 3.2 L TSH 09/14/18 09/14/18 09/14/18 17:03 17:03 17:03 WBC RBC Hgb Hct MCV MCH MCHC RDW Plt Count MPV Absolute Neuts (auto) Neutrophils % Neutrophils % (Manual) Lymphocytes % Lymphocytes % (Manual) Monocytes % Monocytes % (Manual) Eosinophils % Eosinophils % (Manual) Basophils % Nucleated RBC % Platelet Estimate PT with INR 14.9 H INR 1.34 H PTT (Actin FS) 25.8 Puncture Site ABG pH ABG pCO2 at Pt Temp ABG pO2 at Pt Temp ABG HCO3 ABG O2 Sat (Measured) ABG O2 Content ABG Base Excess Michael Test VBG pH POC VBG pCO2 POC VBG pO2 VBG HCO3 VBG O2 Sat (Carter) VBG Base Excess O2 Delivery Device Oxygen Flow Rate Sodium Potassium Chloride Carbon Dioxide Anion Gap BUN Creatinine Creat Clearance w eGFR Random Glucose Calcium Phosphorus Magnesium 1.7 L Total Bilirubin AST ALT Alkaline Phosphatase Creatine Kinase 93 Troponin I 1.10 H* B-Natriuretic Peptide Total Protein Albumin TSH 3.86 H 09/14/18 09/14/18 09/15/18 20:00 23:30 05:30 WBC 17.1 H RBC 3.88 Hgb 11.4 Hct 33.6 MCV 86.7 MCH 29.5 MCHC 34.0 RDW 14.7 Plt Count 277 MPV 7.6 Absolute Neuts (auto) 14.7 H Neutrophils % 85.6 H Neutrophils % (Manual) Lymphocytes % 7.0 L Lymphocytes % (Manual) Monocytes % 7.0 Monocytes % (Manual) Eosinophils % 0.1 Eosinophils % (Manual) Basophils % 0.3 Nucleated RBC % 0 Platelet Estimate PT with INR INR PTT (Actin FS) Puncture Site Right radial ABG pH 7.51 H ABG pCO2 at Pt Temp 28.3 L ABG pO2 at Pt Temp 72.7 L ABG HCO3 22.5 ABG O2 Sat (Measured) 95.0 ABG O2 Content 15.3 ABG Base Excess 0.6 Michael Test No Result Required. VBG pH POC VBG pCO2 POC VBG pO2 VBG HCO3 VBG O2 Sat (Carter) VBG Base Excess O2 Delivery Device N/c Oxygen Flow Rate 2lpm Sodium Potassium Chloride Carbon Dioxide Anion Gap BUN Creatinine Creat Clearance w eGFR Random Glucose Calcium Phosphorus Magnesium Total Bilirubin AST ALT Alkaline Phosphatase Creatine Kinase Troponin I 0.98 H* B-Natriuretic Peptide Total Protein Albumin TSH 09/15/18 09/15/18 09/15/18 05:30 05:30 05:30 WBC RBC Hgb Hct MCV MCH MCHC RDW Plt Count MPV Absolute Neuts (auto) Neutrophils % Neutrophils % (Manual) Lymphocytes % Lymphocytes % (Manual) Monocytes % Monocytes % (Manual) Eosinophils % Eosinophils % (Manual) Basophils % Nucleated RBC % Platelet Estimate PT with INR 15.20 H INR 1.28 H PTT (Actin FS) 34.6 Puncture Site ABG pH ABG pCO2 at Pt Temp ABG pO2 at Pt Temp ABG HCO3 ABG O2 Sat (Measured) ABG O2 Content ABG Base Excess Michael Test VBG pH POC VBG pCO2 POC VBG pO2 VBG HCO3 VBG O2 Sat (Carter) VBG Base Excess O2 Delivery Device Oxygen Flow Rate Sodium 136 Potassium 3.0 L Chloride 101 Carbon Dioxide 22 Anion Gap 13 BUN 10 Creatinine 0.7 Creat Clearance w eGFR 83.72 Random Glucose 99 Calcium 8.4 L Phosphorus 3.2 Magnesium 2.0 Total Bilirubin 1.3 H AST 60 H ALT 18 Alkaline Phosphatase 105 Creatine Kinase Troponin I B-Natriuretic Peptide Total Protein 7.7 Albumin 2.8 L TSH 09/15/18 15:50 WBC RBC Hgb Hct MCV MCH MCHC RDW Plt Count MPV Absolute Neuts (auto) Neutrophils % Neutrophils % (Manual) Lymphocytes % Lymphocytes % (Manual) Monocytes % Monocytes % (Manual) Eosinophils % Eosinophils % (Manual) Basophils % Nucleated RBC % Platelet Estimate PT with INR INR PTT (Actin FS) Puncture Site ABG pH ABG pCO2 at Pt Temp ABG pO2 at Pt Temp ABG HCO3 ABG O2 Sat (Measured) ABG O2 Content ABG Base Excess Michael Test VBG pH POC VBG pCO2 POC VBG pO2 VBG HCO3 VBG O2 Sat (Carter) VBG Base Excess O2 Delivery Device Oxygen Flow Rate Sodium Potassium 4.4 Chloride Carbon Dioxide Anion Gap BUN Creatinine Creat Clearance w eGFR Random Glucose Calcium Phosphorus Magnesium Total Bilirubin AST ALT Alkaline Phosphatase Creatine Kinase Troponin I B-Natriuretic Peptide Total Protein Albumin TSH Active Medications Home Medications Medication Instructions Recorded Anastrozole [Arimidex] 1 mg PO DAILY 09/14/18 Atenolol/Chlorthalidone 1 each PO DAILY 09/14/18 [Atenolol-Chlorthalidone 100-25] Levothyroxine [Synthroid -] 25 mcg PO DAILY 09/14/18 Omeprazole 20 mg PO DAILY 09/14/18 Rosuvastatin [Crestor -] 5 mg PO HS 09/14/18 Current Medications Acetaminophen (Tylenol -) 650 mg PO Q6H PRN PRN Reason: FEVER Anastrozole (Arimidex -) 1 mg PO DAILY [facility] Last Admin: 09/15/18 09:45 Dose: 1 mg Chlorhexidine Gluconate (Hibiclens For Decolonization -) 1 applic TP HS [facility] Enoxaparin Sodium (Lovenox -) 100 mg SQ BID@0700,1900 [facility] Last Admin: 09/15/18 06:25 Dose: 100 mg Levothyroxine Sodium (Synthroid -) 25 mcg PO DAILY@0700 [facility] Last Admin: 09/15/18 06:24 Dose: 25 mcg Mupirocin (Bactroban Ointment (For Decolonization) -) 1 applic NS BID [facility] Stop: 09/20/18 09:59 Last Admin: 09/15/18 11:36 Dose: 1 applic Pantoprazole Sodium (Protonix -) 40 mg PO DAILY [facility] Last Admin: 09/15/18 09:46 Dose: 40 mg Rosuvastatin Calcium (Crestor -) 5 mg PO HS [facility] ASSESSMENT/PLAN: 67 y.o. F w/ PMHx. of Breast Ca s/p Lumpectomy, recently diagnosed Uterine Ca ( scheduled for Surgery at [facility] 09/22/18), presented with Dyspnea, found to be hypoxic and tachycardic at [facility] ED with Bilateral Submassive PE, and transferred to [facility] ICU. 1. Acute Bilateral Submassive PE with RLE DVT CTA Chest - acute central PE with findings of R heart strain Elevated Troponin (0.10) and BNP (4094) due to demand/RV strain Supplemental O2. Lovenox SQ anticoagulation Telemonitoring Echo shows RV dilatation, elevated RVSP, reduced RV systolic function, severe TR Eval by Pulmonary/[employer] - recommend IVC filter and catheter directed thrombolysis, for which she needs transfer. Case discussed with Patient's MANAGER OF SELECTION AND ASSESSMENT-ONC Dr. Black at [facility] who accepted the patient for transfer once appropriate bed becomes available. 2. Uterine Ca Discussed with Dr. Black of [facility] - accepted for transfer - awaiting bed. 3. HTN - Atenolol/Chlorthalidone held due to bilateral submassive PE with RV strain 4. Hypothyroidism - Continue Synthroid 5. HLD - on Crestor. 6. Hx Breast Ca s/p lumpectomy - Continue Anastrazole. 7. Hypokalemia - repleted.
--- NOTE | 2018-09-15 17:33 | DS ---
Physical Exam: SUBJECTIVE: Patient seen and examined. Pt. states she did not sleep well last night because she was worried about postponemnt of her procedure on September 22 because of the pulmonary embolism. OBJECTIVE: Vital Signs Period Temp Pulse Resp BP Sys/Briones Pulse Ox Last 24 Hr 97.8 F-101.6 F 69-87 25-41 94-144/67-98 96-99 PHYSICAL EXAM GENERAL: The patient is awake, alert, and fully oriented, in mild distress. HEAD: Normal with no signs of trauma. EYES: sclera anicteric, conjunctiva clear. ENT: Ears normal, nares patent, oropharynx clear without exudates, moist mucous membranes. NECK: Trachea midline, full range of motion, supple. LUNGS: Decreased breath sounds, no wheezes, no crackles, no accessory muscle use. HEART: Regular rate and rhythm, S1, S2 without murmur ABDOMEN: Soft, LUQ soreness, nondistended, normoactive bowel sounds EXTREMITIES: 2+ pulses, warm, well-perfused, no calf tenderness, no edema. NEUROLOGICAL: Normal speech, gait not observed. PSYCH: Normal mood, normal affect. SKIN: Warm, dry, normal turgor, no rashes or lesions noted. LABS Laboratory Results - last 24 hr 09/14/18 09/14/18 09/14/18 17:03 17:03 17:03 WBC 17.2 H RBC 4.03 Hgb 12.1 Hct 35.6 MCV 88.2 MCH 30.0 MCHC 34.0 RDW 13.7 Plt Count 284 MPV 7.7 Absolute Neuts (auto) 14.2 Neutrophils % No Result Required. Neutrophils % (Manual) 92.0 H* Lymphocytes % No Result Required. Lymphocytes % (Manual) 6.0 L Monocytes % Monocytes % (Manual) 1 L Eosinophils % Eosinophils % (Manual) 1.0 Basophils % Nucleated RBC % Platelet Estimate Adequate PT with INR INR PTT (Actin FS) Puncture Site ABG pH ABG pCO2 at Pt Temp ABG pO2 at Pt Temp ABG HCO3 ABG O2 Sat (Measured) ABG O2 Content ABG Base Excess Michael Test VBG pH 7.46 H POC VBG pCO2 38.5 L POC VBG pO2 25.1 L VBG HCO3 26.8 VBG O2 Sat (Carter) 37.6 L VBG Base Excess 3.3 H O2 Delivery Device Oxygen Flow Rate Sodium 137 Potassium 3.5 Chloride 99 Carbon Dioxide 25 Anion Gap 13 BUN 11 Creatinine 0.8 Creat Clearance w eGFR 71.76 Random Glucose 100 Calcium 8.7 Phosphorus Magnesium Total Bilirubin 1.3 H AST 39 H ALT 17 Alkaline Phosphatase 108 Creatine Kinase Troponin I B-Natriuretic Peptide 4094.3 H Total Protein 8.0 Albumin 3.2 L TSH 09/14/18 09/14/18 09/14/18 17:03 17:03 17:03 WBC RBC Hgb Hct MCV MCH MCHC RDW Plt Count MPV Absolute Neuts (auto) Neutrophils % Neutrophils % (Manual) Lymphocytes % Lymphocytes % (Manual) Monocytes % Monocytes % (Manual) Eosinophils % Eosinophils % (Manual) Basophils % Nucleated RBC % Platelet Estimate PT with INR 14.9 H INR 1.34 H PTT (Actin FS) 25.8 Puncture Site ABG pH ABG pCO2 at Pt Temp ABG pO2 at Pt Temp ABG HCO3 ABG O2 Sat (Measured) ABG O2 Content ABG Base Excess Michael Test VBG pH POC VBG pCO2 POC VBG pO2 VBG HCO3 VBG O2 Sat (Carter) VBG Base Excess O2 Delivery Device Oxygen Flow Rate Sodium Potassium Chloride Carbon Dioxide Anion Gap BUN Creatinine Creat Clearance w eGFR Random Glucose Calcium Phosphorus Magnesium 1.7 L Total Bilirubin AST ALT Alkaline Phosphatase Creatine Kinase 93 Troponin I 1.10 H* B-Natriuretic Peptide Total Protein Albumin TSH 3.86 H 09/14/18 09/14/18 09/15/18 20:00 23:30 05:30 WBC 17.1 H RBC 3.88 Hgb 11.4 Hct 33.6 MCV 86.7 MCH 29.5 MCHC 34.0 RDW 14.7 Plt Count 277 MPV 7.6 Absolute Neuts (auto) 14.7 H Neutrophils % 85.6 H Neutrophils % (Manual) Lymphocytes % 7.0 L Lymphocytes % (Manual) Monocytes % 7.0 Monocytes % (Manual) Eosinophils % 0.1 Eosinophils % (Manual) Basophils % 0.3 Nucleated RBC % 0 Platelet Estimate PT with INR INR PTT (Actin FS) Puncture Site Right radial ABG pH 7.51 H ABG pCO2 at Pt Temp 28.3 L ABG pO2 at Pt Temp 72.7 L ABG HCO3 22.5 ABG O2 Sat (Measured) 95.0 ABG O2 Content 15.3 ABG Base Excess 0.6 Michael Test No Result Required. VBG pH POC VBG pCO2 POC VBG pO2 VBG HCO3 VBG O2 Sat (Carter) VBG Base Excess O2 Delivery Device N/c Oxygen Flow Rate 2lpm Sodium Potassium Chloride Carbon Dioxide Anion Gap BUN Creatinine Creat Clearance w eGFR Random Glucose Calcium Phosphorus Magnesium Total Bilirubin AST ALT Alkaline Phosphatase Creatine Kinase Troponin I 0.98 H* B-Natriuretic Peptide Total Protein Albumin TSH 09/15/18 09/15/18 09/15/18 05:30 05:30 05:30 WBC RBC Hgb Hct MCV MCH MCHC RDW Plt Count MPV Absolute Neuts (auto) Neutrophils % Neutrophils % (Manual) Lymphocytes % Lymphocytes % (Manual) Monocytes % Monocytes % (Manual) Eosinophils % Eosinophils % (Manual) Basophils % Nucleated RBC % Platelet Estimate PT with INR 15.20 H INR 1.28 H PTT (Actin FS) 34.6 Puncture Site ABG pH ABG pCO2 at Pt Temp ABG pO2 at Pt Temp ABG HCO3 ABG O2 Sat (Measured) ABG O2 Content ABG Base Excess Michael Test VBG pH POC VBG pCO2 POC VBG pO2 VBG HCO3 VBG O2 Sat (Carter) VBG Base Excess O2 Delivery Device Oxygen Flow Rate Sodium 136 Potassium 3.0 L Chloride 101 Carbon Dioxide 22 Anion Gap 13 BUN 10 Creatinine 0.7 Creat Clearance w eGFR 83.72 Random Glucose 99 Calcium 8.4 L Phosphorus 3.2 Magnesium 2.0 Total Bilirubin 1.3 H AST 60 H ALT 18 Alkaline Phosphatase 105 Creatine Kinase Troponin I B-Natriuretic Peptide Total Protein 7.7 Albumin 2.8 L TSH 09/15/18 15:50 WBC RBC Hgb Hct MCV MCH MCHC RDW Plt Count MPV Absolute Neuts (auto) Neutrophils % Neutrophils % (Manual) Lymphocytes % Lymphocytes % (Manual) Monocytes % Monocytes % (Manual) Eosinophils % Eosinophils % (Manual) Basophils % Nucleated RBC % Platelet Estimate PT with INR INR PTT (Actin FS) Puncture Site ABG pH ABG pCO2 at Pt Temp ABG pO2 at Pt Temp ABG HCO3 ABG O2 Sat (Measured) ABG O2 Content ABG Base Excess Michael Test VBG pH POC VBG pCO2 POC VBG pO2 VBG HCO3 VBG O2 Sat (Carter) VBG Base Excess O2 Delivery Device Oxygen Flow Rate Sodium Potassium 4.4 Chloride Carbon Dioxide Anion Gap BUN Creatinine Creat Clearance w eGFR Random Glucose Calcium Phosphorus Magnesium Total Bilirubin AST ALT Alkaline Phosphatase Creatine Kinase Troponin I B-Natriuretic Peptide Total Protein Albumin TSH HOSPITAL COURSE: Date of Admission:09/14/18 Date of Discharge: 09/15/18 Pt. admitted for RLE DVTs and "thin pulmonary saddle embolism." Pt. found to have Right heart strain on echocardiogram (severe TR, elevated RV pressure, E/A reversal, LA mod-severely dilated, cannot r/o wall motion abnormalities, mild MR. Pt. given therapeutic dose of Lovenox. Pt. had IVC filter placed. Pt. admitted to ICU for higher level of care. Cardiology consultation appreciated. Decision was made that Pt. 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 Accepting Physician Dr. Ana Howell [phone]. Hospital course discussed and agreed upon with medical staff and Pt. Minutes to complete discharge: 45 Discharge Summary Reason For Visit: BILARERAL P E ,SOB Current Active Problems DVT (deep venous thrombosis) (Acute) Pulmonary embolism (Acute) Condition: Guarded - Instructions Diet, Activity, Other Instructions: You came in for shortness for shortness of breath. We imaged your chest and you were found to have a blood clot in your lungs. We imaged your legs and you were found to have blood clots in your right leg. We imaged your heart and noticed that it has been adversely affected by the presence of the clot. We treated you with blood thinners and placed and IVC filter to help prevent the spread of clots. We are transferring you to [facility] for higher level of care to remove the clots from your lungs. Disposition: TRANSFER ACUTE CARE/OTHER HOSP - Home Medications Comprehensive Discharge Medication List: Ambulatory Orders Anastrozole [Arimidex] 1 mg PO DAILY 09/14/18 Atenolol/Chlorthalidone [Atenolol-Chlorthalidone 100-25] 1 each PO DAILY Levothyroxine [Synthroid -] 25 mcg PO DAILY 09/14/18 Omeprazole 20 mg PO DAILY 09/14/18 Rosuvastatin [Crestor -] 5 mg PO HS 09/14/18 This patient is new to me today: Yes Date on this admission: 09/15/18 Emergency Visit: Yes ED Registration Date: 09/14/18 Care time: The patient presented to the Emergency Department on the above date and was hospitalized for further evaluation of their emergent condition. Critical Care patient: Yes Total Critical Care Time (in minutes): 45 Critical Care Statement: The care of this patient involved high complexity decision making to prevent further life threatening deterioration of the patient 's condition and/or to evaluate & treat vital organ system(s) failure or risk of failure. - Discharge Referral Referred to [facility] Med P.C.: No
[2018-09-15] MEDS ORDERED: CHLORHEXIDINE GLUCONATE 4% CLEANSER FOR DECOLONIZATION TP SCH (22:00)
[2018-09-15] MEDS: ROSUVASTATIN CA 5 MG TABLET (FP) PO SCH (22:21)
[2018-09-15] MEDS: CHLORHEXIDINE GLUCONATE 4% CLEANSER FOR DECOLONIZATION TP SCH (22:28)
[2018-09-16] MEDS ORDERED: METOPROLOL TARTRATE 5 MG/5 ML VIAL IVPUSH ONE (03:22)
[2018-09-16] MEDS ORDERED: METOPROLOL TARTRATE 5 MG/5 ML VIAL ONE (03:25)
[2018-09-16] MEDS: DILTIAZEM INJECTION 125 MG in SODIUM CHLORIDE 100 ML IVPB SCH ×2 (04:26→23:30)
[2018-09-16 04:33] LABS: HEMATOCRIT 35.3 % (32.4-45.2); HEMOGLOBIN 11.9 GM/dL (10.7-15.3); MCH 29.7 pg (25.7-33.7); MCHC 33.7 g/dl (32.0-36.0); MEAN CELL VOLUME 88.2 fl (80-96); MEAN PLT VOLUME 7.3 fl (7.5-11.1); PLATELET COUNT 287 K/MM3 (134-434); RDW 14.5 % (11.6-15.6)
[2018-09-16 05:03] LABS: ALBUMIN 2.6 g/dl (3.4-5.0); ALK PHOS 121 U/L (45-117); ANION GAP 7 MMOL/L (8-16); BILIRUBIN,TOTAL 1.2 mg/dL (0.2-1); BLOOD UREA NITROGEN 17 mg/dL (7-18); CALCIUM 8.4 mg/dL (8.5-10.1); CHLORIDE 104 mmol/L (98-107); CO2 26 mmol/L (21-32); CREATININE 0.8 mg/dL (0.55-1.3); GLUCOSE,RANDOM 96 mg/dL (74-106); MAGNESIUM 2.2 mg/dL (1.8-2.4); PHOSPHOROUS 2.5 mg/dL (2.5-4.9); POTASSIUM 4.2 mmol/L (3.5-5.1); SGOT/AST 54 U/L (15-37); SGPT/ALT 19 U/L (13-61); SODIUM 137 mmol/L (136-145); TOT PROT 7.8 g/dl (6.4-8.2)
[2018-09-16] MEDS ORDERED: SODIUM CHLORIDE 0.9% 500 ML INFUS.BAG IV ONE (05:26)
[2018-09-16] MEDS ORDERED: PT OWN MED DRAWER 7, Y5N ONE ×4 (06:36→18:25)
[2018-09-16] MEDS: ENOXAPARIN NA (PORCINE) 100 MG/1 ML DISP.SYRIN SQ SCH ×2 (06:39→18:04)
[2018-09-16] MEDS: LEVOTHYROXINE NA 25 MCG TABLET (FP) PO SCH (06:39)
[2018-09-16] MEDS: MUPIROCIN 2% TOPICAL OINTMENT FOR DECOLONIZATION NS SCH ×2 (09:25→21:16)
[2018-09-16] MEDS: PANTOPRAZOLE 40 MG TABLET (FP) PO SCH (09:25)
[2018-09-16] MEDS: ANASTROZOLE 1 MG TABLET PO SCH (09:25)
--- NOTE | 2018-09-16 11:37 | PN ---
Teaching Attending Note Name of Resident: Shar Wood ATTENDING PHYSICIAN STATEMENT I saw and evaluated the patient. I reviewed the resident's note and discussed the case with the resident. I agree with the resident's findings and plan as documented. SUBJECTIVE: Patient seen and examined in the ICU. Still with dyspnea at rest. No chest pain or palpitations. S/P IVC Filter placement yesterday. OBJECTIVE: Intake & Output 09/13/18 09/14/18 09/15/18 09/16/18 23:59 23:59 23:59 23:59 Intake Total 550 610 Output Total 100 300 500 Balance -100 250 110 Weight 219 lb 4.8 oz 217 lb 219 lb Last Vital Signs Temp Pulse Resp BP Pulse Ox 98.1 F 111 H 25 H 142/96 99 09/16/18 10:00 09/16/18 10:00 09/16/18 10:00 09/16/18 10:00 09/16/18 09:00 Active Medications Acetaminophen (Tylenol -) 650 mg PO Q6H PRN PRN Reason: FEVER Last Admin: 09/15/18 17:13 Dose: 650 mg Anastrozole (Arimidex -) 1 mg PO DAILY [facility] Last Admin: 09/16/18 09:25 Dose: 1 mg Chlorhexidine Gluconate (Hibiclens For Decolonization -) 1 applic TP HS [facility] Last Admin: 09/15/18 22:28 Dose: 1 applic Enoxaparin Sodium (Lovenox -) 100 mg SQ BID@0700,1900 [facility] Last Admin: 09/16/18 06:39 Dose: 100 mg Diltiazem HCl 125 mg/ Sodium (Chloride) 125 mls @ 5 mls/hr IVPB TITR SURAJ; Protocol Last Titration: 09/16/18 05:00 Dose: 10 mg/hr, 10 mls/hr Levothyroxine Sodium (Synthroid -) 25 mcg PO DAILY@0700 [facility] Last Admin: 09/16/18 06:39 Dose: 25 mcg Mupirocin (Bactroban Ointment (For Decolonization) -) 1 applic NS BID [facility] Stop: 09/20/18 09:59 Last Admin: 09/16/18 09:25 Dose: 1 applic Pantoprazole Sodium (Protonix -) 40 mg PO DAILY [facility] Last Admin: 09/16/18 09:25 Dose: 40 mg Rosuvastatin Calcium (Crestor -) 5 mg PO HS SUR[facility] Last Admin: 09/15/18 22:21 Dose: 5 mg Gen: tachypneic at rest Heart: RRR Lung: decreased breath sounds at the bases Abd: soft, nontender Ext: no edema Laboratory Results - last 24 hr 09/15/18 09/15/18 09/16/18 05:30 15:50 04:00 WBC 18.0 H RBC 4.00 Hgb 11.9 Hct 35.3 MCV 88.2 MCH 29.7 MCHC 33.7 RDW 14.5 Plt Count 287 MPV 7.3 L Sodium Potassium 4.4 Chloride Carbon Dioxide Anion Gap BUN Creatinine Creat Clearance w eGFR Random Glucose Calcium Phosphorus Magnesium Total Bilirubin AST ALT Alkaline Phosphatase Creatine Kinase Troponin I Total Protein Albumin Free T3 2.0 09/16/18 04:00 WBC RBC Hgb Hct MCV MCH MCHC RDW Plt Count MPV Sodium 137 Potassium 4.2 Chloride 104 Carbon Dioxide 26 Anion Gap 7 L BUN 17 Creatinine 0.8 Creat Clearance w eGFR 71.76 Random Glucose 96 Calcium 8.4 L Phosphorus 2.5 Magnesium 2.2 Total Bilirubin 1.2 H AST 54 H ALT 19 Alkaline Phosphatase 121 H Creatine Kinase 81 Troponin I 0.35 H Total Protein 7.8 Albumin 2.6 L Free T3 ASSESSMENT AND PLAN: Acute Bilateral Submassive Pulmonary Emboli Acute RLE DVT +Troponins likely from above Uterine Cancer h/o Breast Ca HTN Hypothyroidism Hypercholesterolemia - continue anticoagulation - will need catheter directed thrombolysis, unavailable at this facility at this time so will be transfered [place] [facility] [place] - O2 to keep SpO2 >90% - replete lytes - ICU monitoring until transfer Dr Cowan Critical care time spent in reviewing chart, evaluating patient and formulating plan 35 min
--- NOTE | 2018-09-16 11:40 | PN ---
Physical Exam: SUBJECTIVE: Patient seen and examined at bedside. Patient found to be in rapid afib overnight, placed on Cardizem gtt. OBJECTIVE: Vital Signs Period Temp Pulse Resp BP Sys/Briones Pulse Ox Last 24 Hr 97.8 F-101.6 F 72-145 21-41 100-147/43-96 96-99 GENERAL: The patient is awake, alert, and fully oriented, in no acute distress. HEAD: Normal with no signs of trauma. LUNGS: Breath sounds equal, clear to auscultation bilaterally, no wheezes, no crackles, no accessory muscle use. HEART: Regular rate and rhythm, S1, S2 without murmur, rub or gallop. ABDOMEN: Soft, nontender, nondistended, normoactive bowel sounds, no guarding, no rebound, no hepatosplenomegaly, no masses. EXTREMITIES: 2+ pulses, warm, well-perfused, no edema. NEUROLOGICAL: Cranial nerves II through X grossly intact. Normal speech. SKIN: Warm, dry, normal turgor, no rashes or lesions noted Laboratory Results - last 24 hr 09/15/18 09/15/18 09/16/18 05:30 15:50 04:00 WBC 18.0 H RBC 4.00 Hgb 11.9 Hct 35.3 MCV 88.2 MCH 29.7 MCHC 33.7 RDW 14.5 Plt Count 287 MPV 7.3 L Sodium Potassium 4.4 Chloride Carbon Dioxide Anion Gap BUN Creatinine Creat Clearance w eGFR Random Glucose Calcium Phosphorus Magnesium Total Bilirubin AST ALT Alkaline Phosphatase Creatine Kinase Troponin I Total Protein Albumin Free T3 2.0 09/16/18 04:00 WBC RBC Hgb Hct MCV MCH MCHC RDW Plt Count MPV Sodium 137 Potassium 4.2 Chloride 104 Carbon Dioxide 26 Anion Gap 7 L BUN 17 Creatinine 0.8 Creat Clearance w eGFR 71.76 Random Glucose 96 Calcium 8.4 L Phosphorus 2.5 Magnesium 2.2 Total Bilirubin 1.2 H AST 54 H ALT 19 Alkaline Phosphatase 121 H Creatine Kinase 81 Troponin I 0.35 H Total Protein 7.8 Albumin 2.6 L Free T3 Active Medications Generic Name Dose Route Start Last Admin Trade Name Freq PRN Reason Stop Dose Admin Acetaminophen 650 mg 09/15/18 14:38 09/15/18 17:13 Tylenol - PO 650 mg Q6H PRN Administration FEVER Anastrozole 1 mg 09/15/18 10:00 09/16/18 09:25 Arimidex - PO 1 mg DAILY SURAJ Administration Chlorhexidine Gluconate 1 applic 09/15/18 22:00 09/15/18 22:28 Hibiclens For Decolonization - TP 1 applic HS SURAJ Administration Enoxaparin Sodium 100 mg 09/15/18 07:00 09/16/18 06:39 Lovenox - SQ 100 mg BID@0700,1900 SURAJ Administration Diltiazem HCl 125 mg/ Sodium 125 mls @ 5 mls/hr 09/16/18 04:00 09/16/18 05:00 Chloride IVPB 10 mg/hr TITR SURAJ 10 mls/hr Titration Protocol 5 MG/HR Levothyroxine Sodium 25 mcg 09/15/18 07:00 09/16/18 06:39 Synthroid - PO 25 mcg DAILY@0700 SURAJ Administration Mupirocin 1 applic 09/15/18 10:00 09/16/18 09:25 Bactroban Ointment (For Decolonization) - NS 09/20/18 09:59 1 applic BID SURAJ Administration Pantoprazole Sodium 40 mg 09/15/18 10:00 09/16/18 09:25 Protonix - PO 40 mg DAILY SURAJ Administration Rosuvastatin Calcium 5 mg 09/15/18 22:00 09/15/18 22:21 Crestor - PO 5 mg HS SURAJ Administration ASSESSMENT/PLAN: Patient is a 67 y/o female with a history of remote breast Ca and [employer] Ca who is here for R LE DVT and R & L pulmonary artery DVT with submassive saddle embolus. Neuro - intact - A& O x3 - head CT: no abnormalities Cardio - R heart strain 2/2 to PE - EKG without any abnormalities - Echo: severe tricuspid regurg, RV systolic pressure elevated 50-60, RV severely dilated - continue rosuvastatin 5 mg po hs - troponemia likely 2/2 to heart strain Pulm - CTA: acute central pulmonary embolism with right heart strain - patient on 100 lovenox BID - patient s/p IVC placement for R leg DVT - Patient accepted for transfer to [facility] for clot removal; awaiting telemetry bed. GI/ - hx cancer, surgery scheduled for 09/22 at [facility] - continue anastrozole - Patient for transfer to [facility] for further care. Renal - stable Heme - on ppx with Lovenox 100 BID - US: R common femoral and deep femoral clot Endo - hx hypothyroidism - continue levothyroxine 25 mcg FEN - regular diet - potassium repleted with 10 meq , 40 Kdur Dispo : -continue to monitor in ICU -for transfer to [facility], awaiting tele bed. Visit type - Emergency Visit Emergency Visit: Yes ED Registration Date: 09/14/18 Care time: The patient presented to the Emergency Department on the above date and was hospitalized for further evaluation of their emergent condition. - New Patient This patient is new to me today: Yes Date on this admission: 09/16/18 - Critical Care Critical Care patient: No - Discharge Referral Referred to [facility] Med P.C.: No
--- NOTE | 2018-09-16 11:59 | PN ---
Progress Note (short form) - Note Progress Note: s: no cp palps dizzy; mild sob o: Vital Signs Temp 98.1 F 09/16/18 10:00 Pulse 111 H 09/16/18 10:00 Resp 25 H 09/16/18 10:00 BP 142/96 09/16/18 10:00 Pulse Ox 99 09/16/18 09:00 Intake & Output 09/15/18 09/15/18 09/16/18 11:59 23:59 11:59 Intake Total 100 450 610 Output Total 300 500 Balance -200 450 110 Weight 217 lb 219 lb Intake: IV 100 510 #1 100 500 Cardizem Injection - 125 10 mg In Normal Saline - 100 ml @ 5 MG/HR 5 mls/hr IVPB TITR SURAJ Rx#: [id number] IVPB 300 Oral 150 100 Output: Urine 300 500 Void 300 500 Other: Voiding Method Bedpan Bedpan Bedpan # Unmeasured Voids Void 1 Bowel Movement No No No Weight Measurement Method [facility] Constitutional: Yes: No Distress, Calm Eyes: Yes: Conjunctiva Clear Neck: Yes: Supple, Trachea Midline Respiratory: Yes: CTA Bilaterally, Tachypnea Gastrointestinal: Yes: Normal Bowel Sounds, Soft Cardiovascular: Yes: Regular Rate and Rhythm JVD: No Heart Sounds: Yes: S1, S2 Murmur: No: Systolic Murmur Musculoskeletal: No: Back Pain Extremities: No: Cold Edema: No Peripheral Pulses: 2+ Left Doralis Pedis, 2+ Right Dorsalis Pedis Integumentary: No: Jaundice Neurological: Yes: Alert, Oriented Psychiatric: No: Agitated Current Medications Generic Name Dose Route Start Last Admin Trade Name Iris PRN Reason Stop Dose Admin Acetaminophen 650 mg 09/15/18 14:38 09/15/18 17:13 Tylenol - PO 650 mg Q6H PRN Administration FEVER Anastrozole 1 mg 09/15/18 10:00 09/16/18 09:25 Arimidex - PO 1 mg DAILY SURAJ Administration Chlorhexidine Gluconate 1 applic 09/15/18 22:00 09/15/18 22:28 Hibiclens For Decolonization - TP 1 applic HS SURAJ Administration Enoxaparin Sodium 100 mg 09/15/18 07:00 09/16/18 06:39 Lovenox - SQ 100 mg BID@0700,1900 SUR[facility] Administration Diltiazem HCl 125 mg/ Sodium 125 mls @ 5 mls/hr 09/16/18 04:00 09/16/18 05:00 Chloride IVPB 10 mg/hr TITR SURAJ 10 mls/hr Titration Protocol 5 MG/HR Levothyroxine Sodium 25 mcg 09/15/18 07:00 09/16/18 06:39 Synthroid - PO 25 mcg DAILY@0700 SURAJ Administration Mupirocin 1 applic 09/15/18 10:00 09/16/18 09:25 Bactroban Ointment (For Decolonization) - NS 09/20/18 09:59 1 applic BID SURAJ Administration Pantoprazole Sodium 40 mg 09/15/18 10:00 09/16/18 09:25 Protonix - PO 40 mg DAILY SURAJ Administration Rosuvastatin Calcium 5 mg 09/15/18 22:00 09/15/18 22:21 Crestor - PO 5 mg HS SURAJ Administration Laboratory Last Values WBC 18.0 K/mm3 (4.0-10.0) H 09/16/18 04:00 RBC 4.00 M/mm3 (3.60-5.2) 09/16/18 04:00 Hgb 11.9 GM/dL (10.7-15.3) 09/16/18 04:00 Hct 35.3 % (32.4-45.2) 09/16/18 04:00 MCV 88.2 fl (80-96) 09/16/18 04:00 MCH 29.7 pg (25.7-33.7) 09/16/18 04:00 MCHC 33.7 g/dl (32.0-36.0) 09/16/18 04:00 RDW 14.5 % (11.6-15.6) 09/16/18 04:00 Plt Count 287 K/MM3 (134-434) 09/16/18 04:00 MPV 7.3 fl (7.5-11.1) L 09/16/18 04:00 Absolute Neuts (auto) 14.7 K/mm3 (1.5-8.0) H 09/15/18 05:30 Neutrophils % 85.6 % (42.8-82.8) H 09/15/18 05:30 Neutrophils % (Manual) 92.0 % (42.8-82.8) H* 09/14/18 17:03 Lymphocytes % 7.0 % (8-40) L 09/15/18 05:30 Lymphocytes % (Manual) 6.0 % (8-40) L 09/14/18 17:03 Monocytes % 7.0 % (3.8-10.2) 09/15/18 05:30 Monocytes % (Manual) 1 % (3.8-10.2) L 09/14/18 17:03 Eosinophils % 0.1 % (0-4.5) 09/15/18 05:30 Eosinophils % (Manual) 1.0 % (0-4.5) 09/14/18 17:03 Basophils % 0.3 % (0-2.0) 09/15/18 05:30 Nucleated RBC % 0 % (0-0) 09/15/18 05:30 Platelet Estimate Adequate 09/14/18 17:03 PT with INR 15.20 SEC (9.7-13.0) H 09/15/18 05:30 INR 1.28 (0.83-1.09) H 09/15/18 05:30 PTT (Actin FS) 34.6 SECONDS (25.2-36.5) 09/15/18 05:30 Puncture Site Right radial 09/14/18 23:30 ABG pH 7.51 (7.35-7.45) H 09/14/18 23:30 ABG pCO2 at Pt Temp 28.3 mmHg (35-45) L 09/14/18 23:30 ABG pO2 at Pt Temp 72.7 mmHg (80-105) L 09/14/18 23:30 ABG HCO3 22.5 mmol/L (22-27) 09/14/18 23:30 ABG O2 Sat (Measured) 95.0 % (95-98) 09/14/18 23:30 ABG O2 Content 15.3 % vol (15-22) 09/14/18 23:30 ABG Base Excess 0.6 meq/l (-2-2) 09/14/18 23:30 Michael Test No Result Required. 09/14/18 23:30 VBG pH 7.46 (7.31-7.41) H 09/14/18 17:03 POC VBG pCO2 38.5 mmHg (41-51) L 09/14/18 17:03 POC VBG pO2 25.1 mmHg (30-40) L 09/14/18 17:03 VBG HCO3 26.8 mmol/L (23-29) 09/14/18 17:03 VBG O2 Sat (Carter) 37.6 % (70-80) L 09/14/18 17:03 VBG Base Excess 3.3 meq/l (-2-2) H 09/14/18 17:03 O2 Delivery Device N/c 09/14/18 23:30 Oxygen Flow Rate 2lpm 09/14/18 23:30 Sodium 137 mmol/L (136-145) 09/16/18 04:00 Potassium 4.2 mmol/L (3.5-5.1) 09/16/18 04:00 Chloride 104 mmol/L (98-107) 09/16/18 04:00 Carbon Dioxide 26 mmol/L (21-32) 09/16/18 04:00 Anion Gap 7 MMOL/L (8-16) L 09/16/18 04:00 BUN 17 mg/dL (7-18) 09/16/18 04:00 Creatinine 0.8 mg/dL (0.55-1.3) 09/16/18 04:00 Creat Clearance w eGFR 71.76 (>60) 09/16/18 04:00 Random Glucose 96 mg/dL (74-106) 09/16/18 04:00 Calcium 8.4 mg/dL (8.5-10.1) L 09/16/18 04:00 Phosphorus 2.5 mg/dL (2.5-4.9) 09/16/18 04:00 Magnesium 2.2 mg/dL (1.8-2.4) 09/16/18 04:00 Total Bilirubin 1.2 mg/dL (0.2-1) H 09/16/18 04:00 AST 54 U/L (15-37) H 09/16/18 04:00 ALT 19 U/L (13-61) 09/16/18 04:00 Alkaline Phosphatase 121 U/L (45-117) H 09/16/18 04:00 Creatine Kinase 81 U/L (26-192) 09/16/18 04:00 Troponin I 0.35 ng/ml (0.00-0.05) H 09/16/18 04:00 B-Natriuretic Peptide 4094.3 pg/ml (5-125) H 09/14/18 17:03 Total Protein 7.8 g/dl (6.4-8.2) 09/16/18 04:00 Albumin 2.6 g/dl (3.4-5.0) L 09/16/18 04:00 TSH 3.86 uIU/ml (0.358-3.74) H 09/14/18 17:03 Free T3 2.0 pg/ml (2.0-4.4) 09/15/18 05:30 EKG: sinus, no ischemic changes, prolonged QTc CTA chest: acute central PE lower ext doppler: RLE DVT tele: afib, vr 110s echo 08/2018: nl lv, rv mod-sev dec fcn, sev rve, allie, sev tr, mild mr, rvsp 50- 60 cxr: no chf est cct 35 mins Assessment/Plan Pulmonary embolism, DVT - cont ac - echo shows right heart strain 2/2 PE. No signs RHF presently. Cont management of PE. Will need f/u echo as outpt to monitor RV. elevated trop - likely demand in setting of PE - no LV wma's - no signs acs - cont to treat PE hypothyroidism - manage per primary HTN - holding home meds in setting of PE afib: -new onset here with rvr -now on dilt gtt, will start po toprol and attempt to wean off gtt -cont ac -cont tele
[2018-09-16] MEDS: metoPROLOL SUCCINATE 25 MG TAB.SR.24H (FP) PO SCH ×2 (13:00→21:17)
--- NOTE | 2018-09-16 15:50 | PN ---
Teaching Attending Note Name of Resident: Jose Escalante ATTENDING PHYSICIAN STATEMENT I saw and evaluated the patient. I reviewed the resident's note and discussed the case with the resident. I agree with the resident's findings and plan as documented. SUBJECTIVE: Feels some SOB. Developed Atrial Fibrillation overnight - Denies CP/ palpitations. OBJECTIVE: Afebrile, Hemodynamically Stable. Last Vital Signs Temp Pulse Resp BP Pulse Ox 97.8 F 105 H 33 H 112/81 99 09/16/18 14:00 09/16/18 14:00 09/16/18 14:00 09/16/18 14:00 09/16/18 09:00 Heart - S1, S2, SM, irregular Lungs - clear to auscultation Abdomen- Soft, non-tender. Bowel Sounds normal. Extremities - RLE > LLE. Neuro - AAO x 3. Moving all 4 extremities. Laboratory Results - last 24 hr 09/15/18 09/15/18 09/16/18 05:30 15:50 04:00 WBC 18.0 H RBC 4.00 Hgb 11.9 Hct 35.3 MCV 88.2 MCH 29.7 MCHC 33.7 RDW 14.5 Plt Count 287 MPV 7.3 L Sodium Potassium 4.4 Chloride Carbon Dioxide Anion Gap BUN Creatinine Creat Clearance w eGFR Random Glucose Calcium Phosphorus Magnesium Total Bilirubin AST ALT Alkaline Phosphatase Creatine Kinase Troponin I Total Protein Albumin Free T3 2.0 09/16/18 04:00 WBC RBC Hgb Hct MCV MCH MCHC RDW Plt Count MPV Sodium 137 Potassium 4.2 Chloride 104 Carbon Dioxide 26 Anion Gap 7 L BUN 17 Creatinine 0.8 Creat Clearance w eGFR 71.76 Random Glucose 96 Calcium 8.4 L Phosphorus 2.5 Magnesium 2.2 Total Bilirubin 1.2 H AST 54 H ALT 19 Alkaline Phosphatase 121 H Creatine Kinase 81 Troponin I 0.35 H Total Protein 7.8 Albumin 2.6 L Free T3 Current Medications Generic Name Dose Route Start Last Admin Trade Name Freq PRN Reason Stop Dose Admin Acetaminophen 650 mg 09/15/18 14:38 09/15/18 17:13 Tylenol - PO 650 mg Q6H PRN Administration FEVER Anastrozole 1 mg 09/15/18 10:00 09/16/18 09:25 Arimidex - PO 1 mg DAILY SURAJ Administration Chlorhexidine Gluconate 1 applic 09/15/18 22:00 09/15/18 22:28 Hibiclens For Decolonization - TP 1 applic HS SURAJ Administration Enoxaparin Sodium 100 mg 09/15/18 07:00 09/16/18 06:39 Lovenox - SQ 100 mg BID@0700,1900 SURAJ Administration Diltiazem HCl 125 mg/ Sodium 125 mls @ 5 mls/hr 09/16/18 04:00 09/16/18 05:00 Chloride IVPB 10 mg/hr TITR SURAJ 10 mls/hr Titration Protocol 5 MG/HR Levothyroxine Sodium 25 mcg 09/15/18 07:00 09/16/18 06:39 Synthroid - PO 25 mcg DAILY@0700 SURAJ Administration Metoprolol Succinate 25 mg 09/16/18 12:01 Toprol Xl - PO BID SURAJ Mupirocin 1 applic 09/15/18 10:00 09/16/18 09:25 Bactroban Ointment (For Decolonization) - NS 09/20/18 09:59 1 applic BID SURAJ Administration Pantoprazole Sodium 40 mg 09/15/18 10:00 09/16/18 09:25 Protonix - PO 40 mg DAILY SURAJ Administration Rosuvastatin Calcium 5 mg 09/15/18 22:00 09/15/18 22:21 Crestor - PO 5 mg HS SURAJ Administration ASSESSMENT AND PLAN: 67 year old female with history of Breast Ca s/p Lumpectomy, recently diagnosed Uterine Ca (scheduled for Surgery at [facility] 09/22/18), presented with Dyspnea, found to be hypoxic and tachycardic at [facility] ED with Bilateral Submassive PE, and transferred to [facility] ICU. 1. Acute Bilateral Submassive PE with RLE DVT CTA Chest - acute central PE with findings of R heart strain Elevated Troponin (1.10 max) and BNP (4094) due to demand/RV strain Supplemental O2. Lovenox SQ anticoagulation Telemonitoring Echo shows RV dilatation, elevated RVSP, reduced RV systolic function, severe TR Eval by Pulmonary/Costume Designer - recommend IVC filter and catheter directed thrombolysis, for which she needs transfer. Case discussed with Patient's BANKING OFFICER-ONC Dr. Black at [facility] who accepted the patient for transfer once appropriate bed becomes available and once insurance approval is obtained - still awaiting above. Case again discussed today with Fellow from [facility] Dr. Mcdaniel explaining clinical status and need for transfer. Still awaiting bed and insurance auth. 2. Atrial Fibrillation - new Secondary to PE Continue Cardizem drip and AC with Lovenox. Started on Metoprolol PO. 3. Uterine Ca Discussed with BANKING OFFICER/ONC Dr. Black at [facility] - accepted for transfer - awaiting bed. 3. HTN - normally on Atenolol/Chlorthalidone - now held. 4. Hypothyroidism - Continue Synthroid 5. HLD - on Crestor. 6. Hx Breast Ca s/p lumpectomy - Continue Anastrazole. 7. Hypokalemia - repleted. Prognosis - concerned about worsening clinical status with development of afib due to R heart strain sec to bilateral submassive PE. CM aware re: insurance issue, awaiting resolution.
[2018-09-16] MEDS: CHLORHEXIDINE GLUCONATE 4% CLEANSER FOR DECOLONIZATION TP SCH (21:17)
[2018-09-16] MEDS: ROSUVASTATIN CA 5 MG TABLET (FP) PO SCH (21:17)
[2018-09-16 23:55] VITALS: BMI 34.2
[2018-09-17] MEDS: LEVOTHYROXINE NA 25 MCG TABLET (FP) PO SCH (06:25)
[2018-09-17] MEDS: ENOXAPARIN NA (PORCINE) 100 MG/1 ML DISP.SYRIN SQ SCH ×2 (06:25→18:35)
[2018-09-17 06:40] LABS: HEMATOCRIT 34.2 % (32.4-45.2); HEMOGLOBIN 11.6 GM/dL (10.7-15.3); MCH 29.7 pg (25.7-33.7); MEAN CELL VOLUME 87.3 fl (80-96); MEAN PLT VOLUME 7.4 fl (7.5-11.1); PLATELET COUNT 328 K/MM3 (134-434); RBC 3.92 M/mm3 (3.60-5.2); RDW 14.9 % (11.6-15.6); WHITE BLOOD COUNT 18.1 K/mm3 (4.0-10.0)
[2018-09-17 07:04] LABS: ALBUMIN 2.3 g/dl (3.4-5.0); ALK PHOS 121 U/L (45-117); ANION GAP 10 MMOL/L (8-16); BLOOD UREA NITROGEN 17 mg/dL (7-18); CALCIUM 8.3 mg/dL (8.5-10.1); CHLORIDE 102 mmol/L (98-107); CO2 24 mmol/L (21-32); CREATININE 0.8 mg/dL (0.55-1.3); GLUCOSE,RANDOM 99 mg/dL (74-106); MAGNESIUM 2.3 mg/dL (1.8-2.4); PHOSPHOROUS 2.8 mg/dL (2.5-4.9); POTASSIUM 3.4 mmol/L (3.5-5.1); SGOT/AST 46 U/L (15-37); SGPT/ALT 18 U/L (13-61); SODIUM 136 mmol/L (136-145); TOT PROT 7.2 g/dl (6.4-8.2)
[2018-09-17] MEDS ORDERED: POTASSIUM CHLORIDE TABS 20 MEQ TABLET.ER (FP) PO ONE (07:41)
[2018-09-17] MEDS: DILTIAZEM INJECTION 125 MG in SODIUM CHLORIDE 100 ML IVPB SCH (08:21)
--- NOTE | 2018-09-17 08:49 | PN ---
Progress Note, Physician Chief Complaint: seen and examined in ICU Short of breath when speaking TELE: AF with average rate 100s. SBP has been stable - Current Medication List Current Medications: Active Medications Acetaminophen (Tylenol -) 650 mg PO Q6H PRN PRN Reason: FEVER Last Admin: 09/15/18 17:13 Dose: 650 mg Anastrozole (Arimidex -) 1 mg PO DAILY [facility] Last Admin: 09/16/18 09:25 Dose: 1 mg Chlorhexidine Gluconate (Hibiclens For Decolonization -) 1 applic TP HS [facility] Last Admin: 09/16/18 21:17 Dose: 1 applic Enoxaparin Sodium (Lovenox -) 100 mg SQ BID@0700,1900 [facility] Last Admin: 09/17/18 06:25 Dose: 100 mg Diltiazem HCl 125 mg/ Sodium (Chloride) 125 mls @ 5 mls/hr IVPB TITR [facility]; Protocol Last Admin: 09/17/18 08:21 Dose: 15 mg/hr, 15 mls/hr Levothyroxine Sodium (Synthroid -) 25 mcg PO DAILY@0700 [facility] Last Admin: 09/17/18 06:25 Dose: 25 mcg Metoprolol Succinate (Toprol Xl -) 25 mg PO BID [facility] Last Admin: 09/16/18 21:17 Dose: 25 mg Mupirocin (Bactroban Ointment (For Decolonization) -) 1 applic NS BID [facility] Stop: 09/20/18 09:59 Last Admin: 09/16/18 21:16 Dose: 1 applic Pantoprazole Sodium (Protonix -) 40 mg PO DAILY [facility] Last Admin: 09/16/18 09:25 Dose: 40 mg Rosuvastatin Calcium (Crestor -) 5 mg PO HS [facility] Last Admin: 09/16/18 21:17 Dose: 5 mg - Objective Vital Signs: Vital Signs Temperature 97.5 F L 09/17/18 06:00 Pulse Rate 98 H 09/17/18 08:21 Respiratory Rate 24 H 09/17/18 06:00 Blood Pressure 118/73 09/17/18 08:21 O2 Sat by Pulse Oximetry (%) 95 09/16/18 21:00 Constitutional: Yes: No Distress Eyes: Yes: Conjunctiva Clear, EOM Intact Cardiovascular: Yes: Pulse Irregular Respiratory: Yes: Other (no wheezing or rales.) Gastrointestinal: Yes: Soft (NT) Edema: Yes Edema: LLE: 1+, RLE: 1+ Peripheral Pulses WNL: Yes Neurological: Yes: Alert, Oriented ...Motor Strength: WNL Labs: CBC, BMP 09/17/18 05:30 09/17/18 05:30 INR, PTT INR 1.28 (0.83-1.09) H 09/15/18 05:30 Laboratory Tests 09/14/18 09/17/18 09/17/18 17:03 05:30 05:30 WBC 18.1 H Hgb 11.6 Plt Count 328 Sodium 136 Potassium 3.4 L Creatinine 0.8 Troponin I 1.10 H* - ....Imaging EKG: Image Reviewed Assessment/Plan IMP/PLAN: 1. Pulmonary embolism, DVT: - cont ac, on Lovenox BID. - echo shows right heart strain 2/2 PE. No signs RHF presently. Cont management of PE. Will need f/u echo as outpt to monitor RV. -As noted in Critical Care note, plan is to transfer to tertiary care facility for catheter directed thrombolysis. 2. Elevated trop: - likely demand in setting of PE - no LV segmental wall motion abnormalities - no signs acs - cont to treat PE 3. Hypothyroidism: - manage per primary 4. HTN: - holding home meds in setting of PE 5. AF: -new onset here with rvr, in setting acute PE -Cont metoprolol, cardizem gtts being weaned -cont ac -cont tele
[2018-09-17] MEDS: metoPROLOL SUCCINATE 25 MG TAB.SR.24H (FP) PO SCH ×2 (09:28→22:11)
[2018-09-17] MEDS: PANTOPRAZOLE 40 MG TABLET (FP) PO SCH (09:28)
[2018-09-17] MEDS ORDERED: LORazepam 1 MG TABLET PO ONE (10:35)
--- NOTE | 2018-09-17 10:57 | PN ---
Teaching Attending Note Name of Resident: Vidhi Vo ATTENDING PHYSICIAN STATEMENT I saw and evaluated the patient. I reviewed the resident's note and discussed the case with the resident. I agree with the resident's findings and plan as documented. SUBJECTIVE: Patient seen and examined in the ICU. Increased dyspnea at rest with increased FiO2 requirements (40% VM). No chest pain or palpitations. Does report some "soreness" around the bottom of the rib cage. Apparent insurance issues with [facility] transfer. OBJECTIVE: Intake & Output 09/14/18 09/15/18 09/16/18 09/17/18 23:59 23:59 23:59 23:59 Intake Total 550 1035 180 Output Total 100 300 500 Balance -100 250 535 180 Weight 219 lb 4.8 oz 217 lb 219 lb 221 lb 14.4 oz Last Vital Signs Temp Pulse Resp BP Pulse Ox 97.5 F L 102 H 24 H 118/73 95 09/17/18 06:00 09/17/18 09:00 09/17/18 06:00 09/17/18 08:21 09/16/18 21:00 Active Medications Acetaminophen (Tylenol -) 650 mg PO Q6H PRN PRN Reason: FEVER Last Admin: 09/15/18 17:13 Dose: 650 mg Anastrozole (Arimidex -) 1 mg PO DAILY [facility] Last Admin: 09/16/18 09:25 Dose: 1 mg Chlorhexidine Gluconate (Hibiclens For Decolonization -) 1 applic TP HS [facility] Last Admin: 09/16/18 21:17 Dose: 1 applic Enoxaparin Sodium (Lovenox -) 100 mg SQ BID@0700,1900 [facility] Last Admin: 09/17/18 06:25 Dose: 100 mg Diltiazem HCl 125 mg/ Sodium (Chloride) 125 mls @ 5 mls/hr IVPB TITR [facility]; Protocol Last Titration: 09/17/18 09:00 Dose: 10 mg/hr, 10 mls/hr Levothyroxine Sodium (Synthroid -) 25 mcg PO DAILY@0700 [facility] Last Admin: 09/17/18 06:25 Dose: 25 mcg Metoprolol Succinate (Toprol Xl -) 25 mg PO BID [facility] Last Admin: 09/17/18 09:28 Dose: 25 mg Mupirocin (Bactroban Ointment (For Decolonization) -) 1 applic NS BID [facility] Stop: 09/20/18 09:59 Last Admin: 09/16/18 21:16 Dose: 1 applic Pantoprazole Sodium (Protonix -) 40 mg PO DAILY [facility] Last Admin: 09/17/18 09:28 Dose: 40 mg Rosuvastatin Calcium (Crestor -) 5 mg PO HS [facility] Last Admin: 09/16/18 21:17 Dose: 5 mg Gen: Awake and alert, tachypneic at rest Heart: RRR Lung: decreased breath sounds at the bases Abd: soft, nontender Ext: no edema Laboratory Results - last 24 hr 09/17/18 09/17/18 05:30 05:30 WBC 18.1 H RBC 3.92 Hgb 11.6 Hct 34.2 MCV 87.3 MCH 29.7 MCHC 34.0 RDW 14.9 Plt Count 328 MPV 7.4 L Sodium 136 Potassium 3.4 L Chloride 102 Carbon Dioxide 24 Anion Gap 10 BUN 17 Creatinine 0.8 Creat Clearance w eGFR 71.76 Random Glucose 99 Calcium 8.3 L Phosphorus 2.8 Magnesium 2.3 Total Bilirubin 1.0 AST 46 H ALT 18 Alkaline Phosphatase 121 H Total Protein 7.2 Albumin 2.3 L ASSESSMENT AND PLAN: Acute Bilateral Submassive Pulmonary Emboli Acute RLE DVT +Troponins likely from above Uterine Cancer h/o Breast Ca HTN Hypothyroidism Hypercholesterolemia - continue anticoagulation with weight based Lovenox - will need catheter directed thrombolysis, unavailable at this facility at this time so will be transfered to [facility] [place] for further intervention. If further insurance issues, will reach out to [facility] or [place] - O2 to keep SpO2 >90%. May need HFOT to decrease WOB - replete lytes - ICU monitoring until transfer. Dr Cowan Critical care time spent in reviewing chart, evaluating patient and formulating plan 35 min
[2018-09-17] MEDS: MUPIROCIN 2% TOPICAL OINTMENT FOR DECOLONIZATION NS SCH ×2 (11:00→22:12)
[2018-09-17] MEDS: ANASTROZOLE 1 MG TABLET PO SCH (11:04)
[2018-09-17] MEDS ORDERED: PT OWN MED DRAWER 7, Y5N ONE ×3 (11:04→20:22)
[2018-09-17] MEDS: ALPRAZolam 0.25 MG TABLET PO ONE ×2 (11:05→11:10)
--- NOTE | 2018-09-17 11:17 | PN ---
Physical Exam: SUBJECTIVE: Patient seen this morning with increased respirations, placed on venti mask. patient very anxious about needing to be transferred to another facility. OBJECTIVE: Vital Signs Temperature 97.5 F L 09/17/18 06:00 Pulse Rate 102 H 09/17/18 09:00 Respiratory Rate 24 H 09/17/18 06:00 Blood Pressure 118/73 09/17/18 08:21 O2 Sat by Pulse Oximetry (%) 95 09/16/18 21:00 GENERAL: The patient is awake, alert, and fully oriented, in no acute distress. HEAD: Normal with no signs of trauma. EYES: PERRL, extraocular movements intact, NECK: Trachea midline, full range of motion, supple. LUNGS: Breath sounds equal, clear to auscultation bilaterally, no wheezes, no crackles, no accessory muscle use. HEART: Regular rate and rhythm, S1, S2 3+ systolic murmur at upper sternal border ABDOMEN: Soft, nontender, nondistended, normoactive bowel sounds EXTREMITIES: 2+ pulses, warm, well-perfused, no edema. No tenderness PSYCH: Normal mood, normal affect. SKIN: Warm, dry, normal turgor, no rashes or lesions noted CBCD WBC 18.1 K/mm3 (4.0-10.0) H 09/17/18 05:30 RBC 3.92 M/mm3 (3.60-5.2) 09/17/18 05:30 Hgb 11.6 GM/dL (10.7-15.3) 09/17/18 05:30 Hct 34.2 % (32.4-45.2) 09/17/18 05:30 MCV 87.3 fl (80-96) 09/17/18 05:30 MCHC 34.0 g/dl (32.0-36.0) 09/17/18 05:30 RDW 14.9 % (11.6-15.6) 09/17/18 05:30 Plt Count 328 K/MM3 (134-434) 09/17/18 05:30 MPV 7.4 fl (7.5-11.1) L 09/17/18 05:30 CMP Sodium 136 mmol/L (136-145) 09/17/18 05:30 Potassium 3.4 mmol/L (3.5-5.1) L 09/17/18 05:30 Chloride 102 mmol/L (98-107) 09/17/18 05:30 Carbon Dioxide 24 mmol/L (21-32) 09/17/18 05:30 Anion Gap 10 MMOL/L (8-16) 09/17/18 05:30 BUN 17 mg/dL (7-18) 09/17/18 05:30 Creatinine 0.8 mg/dL (0.55-1.3) 09/17/18 05:30 Creat Clearance w eGFR 71.76 (>60) 09/17/18 05:30 Calcium 8.3 mg/dL (8.5-10.1) L 09/17/18 05:30 Total Bilirubin 1.0 mg/dL (0.2-1) 09/17/18 05:30 AST 46 U/L (15-37) H 09/17/18 05:30 ALT 18 U/L (13-61) 09/17/18 05:30 Alkaline Phosphatase 121 U/L (45-117) H 09/17/18 05:30 Total Protein 7.2 g/dl (6.4-8.2) 09/17/18 05:30 Albumin 2.3 g/dl (3.4-5.0) L 09/17/18 05:30 Active Medications Acetaminophen (Tylenol -) 650 mg PO Q6H PRN PRN Reason: FEVER Last Admin: 09/15/18 17:13 Dose: 650 mg Anastrozole (Arimidex -) 1 mg PO DAILY [facility] Last Admin: 09/17/18 11:04 Dose: 1 mg Chlorhexidine Gluconate (Hibiclens For Decolonization -) 1 applic TP HS [facility] Last Admin: 09/16/18 21:17 Dose: 1 applic Enoxaparin Sodium (Lovenox -) 100 mg SQ BID@0700,1900 [facility] Last Admin: 09/17/18 06:25 Dose: 100 mg Diltiazem HCl 125 mg/ Sodium (Chloride) 125 mls @ 5 mls/hr IVPB TITR [facility]; Protocol Last Titration: 09/17/18 09:00 Dose: 10 mg/hr, 10 mls/hr Levothyroxine Sodium (Synthroid -) 25 mcg PO DAILY@0700 [facility] Last Admin: 09/17/18 06:25 Dose: 25 mcg Metoprolol Succinate (Toprol Xl -) 25 mg PO BID [facility] Last Admin: 09/17/18 09:28 Dose: 25 mg Mupirocin (Bactroban Ointment (For Decolonization) -) 1 applic NS BID [facility] Stop: 09/20/18 09:59 Last Admin: 09/17/18 11:00 Dose: 1 applic Pantoprazole Sodium (Protonix -) 40 mg PO DAILY [facility] Last Admin: 09/17/18 09:28 Dose: 40 mg Rosuvastatin Calcium (Crestor -) 5 mg PO HS [facility] Last Admin: 09/16/18 21:17 Dose: 5 mg ASSESSMENT/PLAN: Patient is a 67 y/o female with a history of remote breast Ca 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 Neuro - intact - A& O x3 - head CT: no abnormalities Cardio - R heart strain 2/2 to PE - EKG without any abnormalities - Echo: severe tricuspid regurg, RV systolic pressure elevated 50-60, RV severly dilated - continue rosuvastatin 5 mg po hs - tropinemia 2/2 to heart strain Pulm - CTA: acute central pulmonary embolism with right heart strain - patient on 100 lovenox BID - patient received IVD filter 09/15 - patient needs thrombolysis of clot, primary team to transfer - * Spoke with IR Dr. Chen, with elevated WBC possibility of the clot being infectious and altering it could cause dissemination, discussed current management is best management for situation - patient given 1 of ativan for anxiety with current situation - patient on 40 ventimask GI/ - hx cancer, surgery scheduled for 09/22 at [facility] - continue anastrozole Renal - stable Heme - on ppx with Lovenox 100 BID - US: R common femoral and deep femoral clot Endo - hx hypothyroidism - continue levothyroxine 25 mcg FEN - regular diet - potassium repleted with 40 Kdur Dispo : transfer to [facility], currently insurance problems, I have reached out twice today, can call [phone] for questions on insurance sister Marielos [phone] Visit type - Emergency Visit Emergency Visit: No - New Patient This patient is new to me today: No - Critical Care Critical Care patient: Yes Total Critical Care Time (in minutes): 40 Critical Care Statement: The care of this patient involved high complexity decision making to prevent further life threatening deterioration of the patient 's condition and/or to evaluate & treat vital organ system(s) failure or risk of failure.
--- NOTE | 2018-09-17 20:19 | PN ---
Teaching Attending Note Name of Resident: Jose Escalante ATTENDING PHYSICIAN STATEMENT I saw and evaluated the patient. I reviewed the resident's note and discussed the case with the resident. I agree with the resident's findings and plan as documented. SUBJECTIVE: Worsening SOB and increased O2 requirements. Worsening pleuritic CP at base of lungs. No fever/chills/cough/sputum OBJECTIVE: Afebrile, Tachycardic, Tachypneic Last Vital Signs Temp Pulse Resp BP Pulse Ox 98.4 F 119 H 30 H 104/85 95 09/17/18 16:00 09/17/18 18:00 09/17/18 18:00 09/17/18 18:00 09/17/18 09:00 Heart - S1, S2, SM,tachy Lungs - decreased air entry at bases Abdomen- Soft, non-tender. Bowel Sounds normal. Extremities - RLE > LLE. Neuro - AAO x 3. Moving all 4 extremities. Laboratory Results - last 24 hr 09/17/18 09/17/18 05:30 05:30 WBC 18.1 H RBC 3.92 Hgb 11.6 Hct 34.2 MCV 87.3 MCH 29.7 MCHC 34.0 RDW 14.9 Plt Count 328 MPV 7.4 L Sodium 136 Potassium 3.4 L Chloride 102 Carbon Dioxide 24 Anion Gap 10 BUN 17 Creatinine 0.8 Creat Clearance w eGFR 71.76 Random Glucose 99 Calcium 8.3 L Phosphorus 2.8 Magnesium 2.3 Total Bilirubin 1.0 AST 46 H ALT 18 Alkaline Phosphatase 121 H Total Protein 7.2 Albumin 2.3 L Current Medications Generic Name Dose Route Start Last Admin Trade Name Freq PRN Reason Stop Dose Admin Acetaminophen 650 mg 09/15/18 14:38 09/15/18 17:13 Tylenol - PO 650 mg Q6H PRN Administration FEVER Anastrozole 1 mg 09/15/18 10:00 09/17/18 11:04 Arimidex - PO 1 mg DAILY SURAJ Administration Chlorhexidine Gluconate 1 applic 09/15/18 22:00 09/16/18 21:17 Hibiclens For Decolonization - TP 1 applic HS SURAJ Administration Enoxaparin Sodium 100 mg 09/15/18 07:00 09/17/18 18:35 Lovenox - SQ 100 mg BID@0700,1900 SURAJ Administration Diltiazem HCl 125 mg/ Sodium 125 mls @ 5 mls/hr 09/16/18 04:00 09/17/18 13:00 Chloride IVPB 15 mg/hr TITR SURAJ 15 mls/hr Titration Protocol 5 MG/HR Levothyroxine Sodium 25 mcg 09/15/18 07:00 09/17/18 06:25 Synthroid - PO 25 mcg DAILY@0700 SURAJ Administration Metoprolol Succinate 25 mg 09/16/18 12:01 09/17/18 09:28 Toprol Xl - PO 25 mg BID SURAJ Administration Mupirocin 1 applic 09/15/18 10:00 09/17/18 11:00 Bactroban Ointment (For Decolonization) - NS 09/20/18 09:59 1 applic BID SURAJ Administration Pantoprazole Sodium 40 mg 09/15/18 10:00 09/17/18 09:28 Protonix - PO 40 mg DAILY SURAJ Administration Rosuvastatin Calcium 5 mg 09/15/18 22:00 09/16/18 21:17 Crestor - PO 5 mg HS SURAJ Administration ASSESSMENT AND PLAN: 67 year old female with history of Breast Ca s/p Lumpectomy, recently diagnosed Uterine Ca (scheduled for Surgery at [facility] 09/22/18), presented with Dyspnea, found to be hypoxic and tachycardic at [facility] ED with Bilateral Submassive PE, and transferred to [facility] ICU. 1. Acute Bilateral Submassive PE with RLE DVT - worsening symptoms and increased O2 requirements CTA Chest - acute central PE with findings of R heart strain Elevated Troponin (1.10 max) and BNP (4094) due to demand/RV strain Echo shows RV dilatation, elevated RVSP, reduced RV systolic function, severe TR Eval by Pulmonary/Sand Caster - recommend IVC filter (placed )and catheter directed thrombolysis, for which she needs transfer. Case accepted by patient's WOOD GRINDER-ONC Dr. Black at [facility] [place] [facility] who accepted the patient for transfer once appropriate bed becomes available. Insurance authorization apparently approved. Case again discussed today with Ivory Blancas from at [facility] [place] - for transfer once bed available. 2. Atrial Fibrillation with RVR - new Secondary to PE Attempt to wean down Cardizem drip and continue AC with Lovenox. Started on Metoprolol PO. 3. Uterine Ca Discussed with WOOD GRINDER/ONC Dr. Black at [facility] [place] - accepted for transfer - awaiting bed. 3. HTN - normally on Atenolol/Chlorthalidone - now held. 4. Hypothyroidism - Continue Synthroid 5. HLD - on Crestor. 6. Hx Breast Ca s/p lumpectomy - Continue Anastrazole. 7. Hypokalemia - repleted. Prognosis - concerned about worsening clinical status with development of afib due to R heart strain sec to bilateral submassive PE. Insurance auth only obtained this afternoon, [facility] now to contact ICU with bed status.
[2018-09-17] MEDS: ROSUVASTATIN CA 5 MG TABLET (FP) PO SCH (22:08)
[2018-09-17] MEDS: CHLORHEXIDINE GLUCONATE 4% CLEANSER FOR DECOLONIZATION TP SCH (22:10)
[2018-09-18] MEDS: DILTIAZEM INJECTION 125 MG in SODIUM CHLORIDE 100 ML IVPB SCH ×2 (01:50→18:15)
[2018-09-18] MEDS: LEVOTHYROXINE NA 25 MCG TABLET (FP) PO SCH (06:36)
[2018-09-18] MEDS: ENOXAPARIN NA (PORCINE) 100 MG/1 ML DISP.SYRIN SQ SCH ×2 (06:36→18:14)
[2018-09-18 06:55] LABS: ALBUMIN 2.3 g/dl (3.4-5.0); ALK PHOS 142 U/L (45-117); ANION GAP 8 MMOL/L (8-16); BLOOD UREA NITROGEN 21 mg/dL (7-18); CALCIUM 8.5 mg/dL (8.5-10.1); CHLORIDE 105 mmol/L (98-107); CO2 27 mmol/L (21-32); CREATININE 0.8 mg/dL (0.55-1.3); GLUCOSE,RANDOM 111 mg/dL (74-106); MAGNESIUM 2.4 mg/dL (1.8-2.4); PHOSPHOROUS 3.1 mg/dL (2.5-4.9); POTASSIUM 3.7 mmol/L (3.5-5.1); SGOT/AST 42 U/L (15-37); SGPT/ALT 15 U/L (13-61); SODIUM 139 mmol/L (136-145); TOT PROT 7.1 g/dl (6.4-8.2)
[2018-09-18 06:59] LABS: HEMATOCRIT 34.3 % (32.4-45.2); HEMOGLOBIN 11.5 GM/dL (10.7-15.3); MCH 29.8 pg (25.7-33.7); MCHC 33.6 g/dl (32.0-36.0); MEAN CELL VOLUME 88.5 fl (80-96); MEAN PLT VOLUME 7.5 fl (7.5-11.1); PLATELET COUNT 358 K/MM3 (134-434); RBC 3.88 M/mm3 (3.60-5.2); RDW 14.8 % (11.6-15.6); WHITE BLOOD COUNT 18.1 K/mm3 (4.0-10.0)
--- NOTE | 2018-09-18 07:43 | PN ---
Progress Note, Physician Chief Complaint: shortness of breath History of Present Illness: feels better today, tolerated nasal cannula overnight while sleeping. increases to venti-mask when aware and speaking intermittent dry cough denies chest pain, palpitations, abdominal pain, n/v, fevers. pt is aware of pending transfer to [facility], awaiting bed availability as insurance has approved the transfer. - Current Medication List Current Medications: Active Medications Acetaminophen (Tylenol -) 650 mg PO Q6H PRN PRN Reason: FEVER Last Admin: 09/15/18 17:13 Dose: 650 mg Anastrozole (Arimidex -) 1 mg PO DAILY [facility] Last Admin: 09/17/18 11:04 Dose: 1 mg Chlorhexidine Gluconate (Hibiclens For Decolonization -) 1 applic TP HS [facility] Last Admin: 09/17/18 22:10 Dose: 1 applic Enoxaparin Sodium (Lovenox -) 100 mg SQ BID@0700,1900 [facility] Last Admin: 09/18/18 06:36 Dose: 100 mg Diltiazem HCl 125 mg/ Sodium (Chloride) 125 mls @ 5 mls/hr IVPB TITR [facility]; Protocol Last Admin: 09/18/18 01:50 Dose: 15 mg/hr, 15 mls/hr Levothyroxine Sodium (Synthroid -) 25 mcg PO DAILY@0700 [facility] Last Admin: 09/18/18 06:36 Dose: 25 mcg Metoprolol Succinate (Toprol Xl -) 25 mg PO BID [facility] Last Admin: 09/17/18 22:11 Dose: 25 mg Mupirocin (Bactroban Ointment (For Decolonization) -) 1 applic NS BID [facility] Stop: 09/20/18 09:59 Last Admin: 09/17/18 22:12 Dose: 1 applic Pantoprazole Sodium (Protonix -) 40 mg PO DAILY [facility] Last Admin: 09/17/18 09:28 Dose: 40 mg Rosuvastatin Calcium (Crestor -) 5 mg PO [facility] Last Admin: 09/17/18 22:08 Dose: 5 mg - Objective Vital Signs: Vital Signs Temperature 97.5 F L 09/18/18 04:00 Pulse Rate 93 H 09/18/18 06:00 Respiratory Rate 22 H 09/18/18 06:00 Blood Pressure 100/65 09/18/18 06:00 O2 Sat by Pulse Oximetry (%) 95 09/17/18 21:00 Constitutional: Yes: Calm Eyes: Yes: EOM Intact, PERRL HENT: Yes: Atraumatic, Normocephalic Neck: Yes: Supple, Trachea Midline. 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 for further intervention. [phone]: [facility] ICU, spoke to Amanda at 7:30AM Dr. Lara called back at 8:12AM and said pt has not received financial clearance, shared with him our rn case mgr's note from yesterday that stated Ivory provided approval. Spoke with Bettina from [facility] admitting at 10Am, pt does have financial clearance. spoke with amanda again who will let the Physicians know of the updated status and we will be called again when a bed is available. we will arrange transportation customer service at [facility] for transportation number is [phone] discussed above developments with pt and her son at bedside. received phone call from Dr. Rodríguez at 5pm, no beds currently available at [facility] in ICU, step down or Telemetry, will update again tomorrow. updated pt and sister at bedside. Pt has placed deadline for transfer, requested that if no beds available at [facility] by 1pm tomorrow to seek transfer to [facility] (1st preference) or [facility](2nd preference) or [facility] (3rd preference). - Neurological - intact without any neurological deficits, able to consent - Cardiovascular - new onset Afib(noted on monitor 09/16) - rate controlled on cardizem drip @ 10cc/hr and metoprolol 25mg po BID - echo shows right heart strain from PE, will likely require repeat echo once stable - close monitoring for hemodynamic instability in ICU - continue home crestor - Respiratory - PE, awaiting transfer to [facility] for catheter directed thrombolysis and further Onc management. - supplemental oxygen as tolerated to maintain at >90% - 100md BID lovenox for anticoagulation - patient received IVC filter 09/15 - Hematology/Oncology - hx cancer, surgery scheduled for 09/22 at [facility] which has been cancelled, pt said she was contacted by [facility]. - continue anastrozole - Endocrine - hx hypothyroidism - continue levothyroxine 25 mcg - Prophylaxis on lovenox and protonix - nutrition: regular diet Dispo: ICU monitoring while pending transfer to [facility]. sister Marielos [phone]
--- NOTE | 2018-09-18 08:56 | PN ---
Progress Note, Physician Chief Complaint: seen and examined in ICU TELE: rate controlled AF Still little SOB - Current Medication List Current Medications: Active Medications Acetaminophen (Tylenol -) 650 mg PO Q6H PRN PRN Reason: FEVER Last Admin: 09/15/18 17:13 Dose: 650 mg Anastrozole (Arimidex -) 1 mg PO DAILY [facility] Last Admin: 09/17/18 11:04 Dose: 1 mg Chlorhexidine Gluconate (Hibiclens For Decolonization -) 1 applic TP HS [facility] Last Admin: 09/17/18 22:10 Dose: 1 applic Enoxaparin Sodium (Lovenox -) 100 mg SQ BID@0700,1900 [facility] Last Admin: 09/18/18 06:36 Dose: 100 mg Diltiazem HCl 125 mg/ Sodium (Chloride) 125 mls @ 5 mls/hr IVPB TITR [facility]; Protocol Last Admin: 09/18/18 01:50 Dose: 15 mg/hr, 15 mls/hr Levothyroxine Sodium (Synthroid -) 25 mcg PO DAILY@0700 [facility] Last Admin: 09/18/18 06:36 Dose: 25 mcg Metoprolol Succinate (Toprol Xl -) 25 mg PO BID [facility] Last Admin: 09/17/18 22:11 Dose: 25 mg Mupirocin (Bactroban Ointment (For Decolonization) -) 1 applic NS BID [facility] Stop: 09/20/18 09:59 Last Admin: 09/17/18 22:12 Dose: 1 applic Pantoprazole Sodium (Protonix -) 40 mg PO DAILY [facility] Last Admin: 09/17/18 09:28 Dose: 40 mg Rosuvastatin Calcium (Crestor -) 5 mg PO [facility] Last Admin: 09/17/18 22:08 Dose: 5 mg - Objective Vital Signs: Vital Signs Temperature 97.5 F L 09/18/18 08:00 Pulse Rate 90 09/18/18 08:00 Respiratory Rate 28 H 09/18/18 08:00 Blood Pressure 117/76 09/18/18 08:00 O2 Sat by Pulse Oximetry (%) 95 09/18/18 08:15 Constitutional: Yes: No Distress Cardiovascular: Yes: Pulse Irregular Respiratory: Yes: Other (decreased basilar breath sounds) Gastrointestinal: Yes: Soft Edema: Yes Edema: LLE: Trace, RLE: Trace Peripheral Pulses WNL: Yes Neurological: Yes: Alert, Oriented ...Motor Strength: WNL Labs: CBC, BMP 09/18/18 05:30 09/18/18 05:30 INR, PTT INR 1.28 (0.83-1.09) H 09/15/18 05:30 - ....Imaging EKG: Image Reviewed Assessment/Plan IMP/PLAN: 1. Pulmonary embolism, DVT: - cont ac, on Lovenox BID. - echo shows right heart strain 2/2 PE. No signs RHF presently. Cont management of PE. Will need f/u echo as outpt to monitor RV. -As noted in Critical Care note, plan is to transfer to tertiary care facility for catheter directed thrombolysis. 2. Elevated trop: - likely demand in setting of PE - no LV segmental wall motion abnormalities - no signs acs - cont to treat PE 3. Hypothyroidism: - manage per primary 4. AF: -new onset here with rvr, in setting acute PE -Cont metoprolol, cardizem gtts -cont ac -cont tele
[2018-09-18] MEDS ORDERED: PT OWN MED DRAWER 7, Y5N ONE ×2 (09:04→21:43)
[2018-09-18] MEDS: ANASTROZOLE 1 MG TABLET PO SCH (09:06)
[2018-09-18] MEDS: PANTOPRAZOLE 40 MG TABLET (FP) PO SCH (09:06)
[2018-09-18] MEDS: metoPROLOL SUCCINATE 25 MG TAB.SR.24H (FP) PO SCH ×2 (09:06→21:45)
[2018-09-18] MEDS: MUPIROCIN 2% TOPICAL OINTMENT FOR DECOLONIZATION NS SCH ×2 (09:07→21:45)
--- NOTE | 2018-09-18 09:48 | PN ---
Teaching Attending Note Name of Resident: Teodoro Humphrey ATTENDING PHYSICIAN STATEMENT I saw and evaluated the patient. I reviewed the resident's note and discussed the case with the resident. I agree with the resident's findings and plan as documented. SUBJECTIVE: Patient seen and examined in the ICU. Less dyspnea at rest but still mildly tachypneic at rest. No chest pain or palpitations. Still reports some "soreness" around the bottom of the rib cage. Apparent insurance issues with [facility] transfer. OBJECTIVE: Intake & Output 09/15/18 09/16/18 09/17/18 09/18/18 23:59 23:59 23:59 23:59 Intake Total 550 1035 960 70 Output Total 300 500 600 450 Balance 250 535 360 -380 Weight 217 lb 219 lb 221 lb 14.4 oz Last Vital Signs Temp Pulse Resp BP Pulse Ox 97.5 F L 90 28 H 117/76 95 09/18/18 08:00 09/18/18 08:00 09/18/18 08:00 09/18/18 08:00 09/18/18 08:15 Active Medications Acetaminophen (Tylenol -) 650 mg PO Q6H PRN PRN Reason: FEVER Last Admin: 09/15/18 17:13 Dose: 650 mg Anastrozole (Arimidex -) 1 mg PO DAILY [facility] Last Admin: 09/18/18 09:06 Dose: 1 mg Chlorhexidine Gluconate (Hibiclens For Decolonization -) 1 applic TP HS [facility] Last Admin: 09/17/18 22:10 Dose: 1 applic Enoxaparin Sodium (Lovenox -) 100 mg SQ BID@0700,1900 [facility] Last Admin: 09/18/18 06:36 Dose: 100 mg Diltiazem HCl 125 mg/ Sodium (Chloride) 125 mls @ 5 mls/hr IVPB TITR [facility]; Protocol Last Admin: 09/18/18 01:50 Dose: 15 mg/hr, 15 mls/hr Levothyroxine Sodium (Synthroid -) 25 mcg PO DAILY@0700 [facility] Last Admin: 09/18/18 06:36 Dose: 25 mcg Metoprolol Succinate (Toprol Xl -) 25 mg PO BID [facility] Last Admin: 09/18/18 09:06 Dose: 25 mg Mupirocin (Bactroban Ointment (For Decolonization) -) 1 applic NS BID [facility] Stop: 09/20/18 09:59 Last Admin: 09/18/18 09:07 Dose: Not Given Pantoprazole Sodium (Protonix -) 40 mg PO DAILY [facility] Last Admin: 09/18/18 09:06 Dose: 40 mg Rosuvastatin Calcium (Crestor -) 5 mg PO HS [facility] Last Admin: 09/17/18 22:08 Dose: 5 mg Gen: Awake and alert, tachypneic at rest Heart: RRR Lung: decreased breath sounds at the bases Abd: soft, nontender Ext: no edema Laboratory Results - last 24 hr 09/18/18 09/18/18 05:30 05:30 WBC 18.1 H RBC 3.88 Hgb 11.5 Hct 34.3 MCV 88.5 MCH 29.8 MCHC 33.6 RDW 14.8 Plt Count 358 MPV 7.5 Sodium 139 Potassium 3.7 Chloride 105 Carbon Dioxide 27 Anion Gap 8 BUN 21 H Creatinine 0.8 Creat Clearance w eGFR 71.76 Random Glucose 111 H Calcium 8.5 Phosphorus 3.1 Magnesium 2.4 Total Bilirubin 1.0 AST 42 H ALT 15 Alkaline Phosphatase 142 H Total Protein 7.1 Albumin 2.3 L ASSESSMENT AND PLAN: Acute Bilateral Submassive Pulmonary Emboli Acute RLE DVT +Troponins likely from above Uterine Cancer h/o Breast Ca HTN Hypothyroidism Hypercholesterolemia - continue anticoagulation with weight based Lovenox - will need catheter directed thrombolysis, unavailable at this facility at this time so will be transfered to [facility] for further intervention. - O2 to keep SpO2 >90%. May need HFOT to decrease WOB - replete lytes - ICU monitoring until transfer. Dr Cowan Critical care time spent in reviewing chart, evaluating patient and formulating plan 35 min
--- NOTE | 2018-09-18 12:42 | PN ---
Physical Exam: SUBJECTIVE: Patient seen and examined at bedside. Reports mild shortness of breath and cough. Denies chest pain. OBJECTIVE: Vital Signs Period Temp Pulse Resp BP Sys/Briones Pulse Ox Last 24 Hr 97.5 F-98.4 F 86-122 22-36 100-125/65-85 95-95 GENERAL: A&Ox3, mild distress EYES: PERRLA, EOMI ENT: Moist mucus membranes NECK: No JVD LUNGS: CTA, no wheezes HEART: tachycardic, mild systolic murmur ABDOMEN: Soft, nontender, BS present MUSCULOSKELETAL: No CVA Tenderness EXTREMITIES: 2+ pulses, R leg has 1+ edema NEUROLOGICAL: Cranial nerves II-XII intact. Laboratory Results - last 24 hr 09/18/18 09/18/18 05:30 05:30 WBC 18.1 H RBC 3.88 Hgb 11.5 Hct 34.3 MCV 88.5 MCH 29.8 MCHC 33.6 RDW 14.8 Plt Count 358 MPV 7.5 Sodium 139 Potassium 3.7 Chloride 105 Carbon Dioxide 27 Anion Gap 8 BUN 21 H Creatinine 0.8 Creat Clearance w eGFR 71.76 Random Glucose 111 H Calcium 8.5 Phosphorus 3.1 Magnesium 2.4 Total Bilirubin 1.0 AST 42 H ALT 15 Alkaline Phosphatase 142 H Total Protein 7.1 Albumin 2.3 L Active Medications Generic Name Dose Route Start Last Admin Trade Name Freq PRN Reason Stop Dose Admin Acetaminophen 650 mg 09/15/18 14:38 09/15/18 17:13 Tylenol - PO 650 mg Q6H PRN Administration FEVER Anastrozole 1 mg 09/15/18 10:00 09/18/18 09:06 Arimidex - PO 1 mg DAILY [facility] Administration Chlorhexidine Gluconate 1 applic 09/15/18 22:00 09/17/18 22:10 Hibiclens For Decolonization - TP 1 applic HS [facility] Administration Enoxaparin Sodium 100 mg 09/15/18 07:00 09/18/18 06:36 Lovenox - SQ 100 mg BID@0700,1900 [facility] Administration Diltiazem HCl 125 mg/ Sodium 125 mls @ 5 mls/hr 09/16/18 04:00 09/18/18 01:50 Chloride IVPB 15 mg/hr TITR [facility] 15 mls/hr Administration Protocol 5 MG/HR Levothyroxine Sodium 25 mcg 09/15/18 07:00 09/18/18 06:36 Synthroid - PO 25 mcg DAILY@0700 [facility] Administration Metoprolol Succinate 25 mg 09/16/18 12:01 09/18/18 09:06 Toprol Xl - PO 25 mg BID [facility] Administration Mupirocin 1 applic 09/15/18 10:00 09/18/18 09:07 Bactroban Ointment (For Decolonization) - NS 09/20/18 09:59 Not Given BID [facility] Pantoprazole Sodium 40 mg 09/15/18 10:00 09/18/18 09:06 Protonix - PO 40 mg DAILY [facility] Administration Rosuvastatin Calcium 5 mg 09/15/18 22:00 09/17/18 22:08 Crestor - PO 5 mg HS [facility] Administration ASSESSMENT/PLAN: 67 year old woman with unspecified OBGYN malignancy, unknown stage with acute right central pulmonary embolism with findings of right heart strain on CTA, however is hemodynamically stable. + Right lower ext DVT. #Submassive Pulmonary Embolism: clinically mildly improved from yesterday, less pain and SOB, + DVT in R leg -ICU monitoring -lovenox 100 BID -s/p IVC filter -laboratory monitor -echo w/ R heart strain -supplemental O2 -awaiting transfer to [facility] for thrombectomy #Atrial Fibrillation: today more rate controlled, under 100 but still Afib on monitor -toprol XL 25 BID -diltiazem ggt #Pelvic malignancy - unspecified. unknown stage. Care received at [facility] previously #Hyperlipidemia: on crestor #Hypothyroid: chronic #FEN -diet -lytes normal -no fluids #Prophylaxis -on lovenox therapeutic dose for PE #Disposition -ICU, awaiting transfer to [facility] -full code Visit type - Emergency Visit Emergency Visit: No - New Patient This patient is new to me today: No - Critical Care Critical Care patient: Yes Total Critical Care Time (in minutes): 36 Critical Care Statement: The care of this patient involved high complexity decision making to prevent further life threatening deterioration of the patient 's condition and/or to evaluate & treat vital organ system(s) failure or risk of failure.
--- NOTE | 2018-09-18 14:54 | PN ---
Teaching Attending Note Name of Resident: Walter Vaz ATTENDING PHYSICIAN STATEMENT I saw and evaluated the patient. I reviewed the resident's note and discussed the case with the resident. I agree with the resident's findings and plan as documented. SUBJECTIVE: Ongoing SOB and increased O2 requirements - some improvement from yesterday. No fever/chills/cough/sputum OBJECTIVE: Afebrile, Tachycardia resolving, still Tachypneic Last Vital Signs Temp Pulse Resp BP Pulse Ox 97.6 F 90 25 H 107/68 95 09/18/18 14:00 09/18/18 14:00 09/18/18 14:00 09/18/18 14:00 09/18/18 08:15 Heart - S1, S2, SM Lungs - decreased air entry at bases Abdomen- Soft, non-tender. Bowel Sounds normal. Extremities - RLE > LLE. Neuro - AAO x 3. Moving all 4 extremities. Laboratory Results - last 24 hr 09/18/18 09/18/18 05:30 05:30 WBC 18.1 H RBC 3.88 Hgb 11.5 Hct 34.3 MCV 88.5 MCH 29.8 MCHC 33.6 RDW 14.8 Plt Count 358 MPV 7.5 Sodium 139 Potassium 3.7 Chloride 105 Carbon Dioxide 27 Anion Gap 8 BUN 21 H Creatinine 0.8 Creat Clearance w eGFR 71.76 Random Glucose 111 H Calcium 8.5 Phosphorus 3.1 Magnesium 2.4 Total Bilirubin 1.0 AST 42 H ALT 15 Alkaline Phosphatase 142 H Total Protein 7.1 Albumin 2.3 L Current Medications Generic Name Dose Route Start Last Admin Trade Name Freq PRN Reason Stop Dose Admin Acetaminophen 650 mg 09/15/18 14:38 09/15/18 17:13 Tylenol - PO 650 mg Q6H PRN Administration FEVER Anastrozole 1 mg 09/15/18 10:00 09/18/18 09:06 Arimidex - PO 1 mg DAILY [facility] Administration Chlorhexidine Gluconate 1 applic 09/15/18 22:00 09/17/18 22:10 Hibiclens For Decolonization - TP 1 applic HS [facility] Administration Enoxaparin Sodium 100 mg 09/15/18 07:00 09/18/18 06:36 Lovenox - SQ 100 mg BID@0700,1900 [facility] Administration Diltiazem HCl 125 mg/ Sodium 125 mls @ 5 mls/hr 09/16/18 04:00 09/18/18 01:50 Chloride IVPB 15 mg/hr TITR [facility] 15 mls/hr Administration Protocol 5 MG/HR Levothyroxine Sodium 25 mcg 09/15/18 07:00 09/18/18 06:36 Synthroid - PO 25 mcg DAILY@0700 [facility] Administration Metoprolol Succinate 25 mg 09/16/18 12:01 09/18/18 09:06 Toprol Xl - PO 25 mg BID [facility] Administration Mupirocin 1 applic 09/15/18 10:00 09/18/18 09:07 Bactroban Ointment (For Decolonization) - NS 09/20/18 09:59 Not Given BID [facility] Pantoprazole Sodium 40 mg 09/15/18 10:00 09/18/18 09:06 Protonix - PO 40 mg DAILY [facility] Administration Rosuvastatin Calcium 5 mg 09/15/18 22:00 09/17/18 22:08 Crestor - PO 5 mg HS [facility] Administration ASSESSMENT AND PLAN: 67 year old female with history of Breast Ca s/p Lumpectomy, recently diagnosed Uterine Ca (scheduled for Surgery at [facility] 09/22/18), presented with Dyspnea, found to be hypoxic and tachycardic at [facility] ED with Bilateral Submassive PE, and transferred to [facility] ICU. 1. Acute Bilateral Submassive PE with RLE DVT CTA Chest - acute central PE with findings of R heart strain Elevated Troponin (1.10 max) and BNP (4094) due to demand/RV strain Echo shows RV dilatation, elevated RVSP, reduced RV systolic function, severe TR Eval by Pulmonary/[employer] - recommend IVC filter (placed )and catheter directed thrombolysis, for which she needs transfer. Case accepted by patient's FOOT ROENTGENOLOGIST-ONC Dr. Black at [facility], who accepted the patient for transfer. Insurance authorization approved, now awaiting bed. 2. Atrial Fibrillation with RVR - new - sec to PE Continue to attempt weaning of Cardizem drip and continue AC with Lovenox. Continue Metoprolol PO. 3. Uterine Ca Discussed with FOOT ROENTGENOLOGIST/ONC Dr. Black at [facility] - accepted for transfer - awaiting bed. 3. HTN - normally on Atenolol/Chlorthalidone - now held. 4. Hypothyroidism - Continue Synthroid 5. HLD - on Crestor. 6. Hx Breast Ca s/p lumpectomy - Continue Anastrazole. 7. Hypokalemia - repleted. Prognosis - concerned about patient's clinical status with development of afib due to R heart strain sec to bilateral submassive PE. Insurance auth obtained , awaiting bed at [facility].
[2018-09-18] MEDS: CHLORHEXIDINE GLUCONATE 4% CLEANSER FOR DECOLONIZATION TP SCH (21:45)
[2018-09-18] MEDS: ROSUVASTATIN CA 5 MG TABLET (FP) PO SCH (23:41)
[2018-09-19] MEDS: DILTIAZEM INJECTION 125 MG in SODIUM CHLORIDE 100 ML IVPB SCH (03:00)
[2018-09-19] MEDS: LEVOTHYROXINE NA 25 MCG TABLET (FP) PO SCH (06:01)
[2018-09-19] MEDS: ENOXAPARIN NA (PORCINE) 100 MG/1 ML DISP.SYRIN SQ SCH ×2 (06:01→18:03)
[2018-09-19 06:47] LABS: ANION GAP 9 MMOL/L (8-16); BLOOD UREA NITROGEN 25 mg/dL (7-18); CALCIUM 8.3 mg/dL (8.5-10.1); CHLORIDE 104 mmol/L (98-107); CO2 26 mmol/L (21-32); CREATININE 0.8 mg/dL (0.55-1.3); GLUCOSE,RANDOM 91 mg/dL (74-106); MAGNESIUM 2.4 mg/dL (1.8-2.4); PHOSPHOROUS 3.4 mg/dL (2.5-4.9); POTASSIUM 3.6 mmol/L (3.5-5.1); SODIUM 139 mmol/L (136-145)
[2018-09-19 07:28] LABS: HEMATOCRIT 34.1 % (32.4-45.2); HEMOGLOBIN 11.4 GM/dL (10.7-15.3); MCH 29.6 pg (25.7-33.7); MCHC 33.5 g/dl (32.0-36.0); MEAN CELL VOLUME 88.2 fl (80-96); MEAN PLT VOLUME 7.4 fl (7.5-11.1); PLATELET COUNT 380 K/MM3 (134-434); RBC 3.86 M/mm3 (3.60-5.2); RDW 14.9 % (11.6-15.6); WHITE BLOOD COUNT 16.1 K/mm3 (4.0-10.0)
--- NOTE | 2018-09-19 08:00 | PN ---
Progress Note (short form) - Note Progress Note: c/o dyspnea at rest. cough productive of small amount of white plegm. no blood. denies CP, fever, chills, N/V/C/D Current Medications Generic Name Dose Route Start Last Admin Trade Name Freq PRN Reason Stop Dose Admin Acetaminophen 650 mg 09/15/18 14:38 09/15/18 17:13 Tylenol - PO 650 mg Q6H PRN Administration FEVER Anastrozole 1 mg 09/15/18 10:00 09/18/18 09:06 Arimidex - PO 1 mg DAILY [facility] Administration Chlorhexidine Gluconate 1 applic 09/15/18 22:00 09/18/18 21:45 Hibiclens For Decolonization - TP 1 applic HS [facility] Administration Enoxaparin Sodium 100 mg 09/15/18 07:00 09/19/18 06:01 Lovenox - SQ 100 mg BID@0700,1900 [facility] Administration Diltiazem HCl 125 mg/ Sodium 125 mls @ 5 mls/hr 09/16/18 04:00 09/19/18 03:00 Chloride IVPB 10 mg/hr TITR [facility] 10 mls/hr Administration Protocol 5 MG/HR Levothyroxine Sodium 25 mcg 09/15/18 07:00 09/19/18 06:01 Synthroid - PO 25 mcg DAILY@0700 [facility] Administration Metoprolol Succinate 25 mg 09/16/18 12:01 09/18/18 21:45 Toprol Xl - PO 25 mg BID [facility] Administration Mupirocin 1 applic 09/15/18 10:00 09/18/18 21:45 Bactroban Ointment (For Decolonization) - NS 09/20/18 09:59 1 applic BID [facility] Administration Pantoprazole Sodium 40 mg 09/15/18 10:00 09/18/18 09:06 Protonix - PO 40 mg DAILY [facility] Administration Rosuvastatin Calcium 5 mg 09/15/18 22:00 09/18/18 23:41 Crestor - PO 5 mg HS [facility] Administration Last Vital Signs Temp Pulse Resp BP Pulse Ox 98 F 82 22 H 106/76 95 09/19/18 07:10 09/19/18 07:10 09/19/18 07:10 09/19/18 07:10 09/18/18 22:00 Intake & Output 0409/17/18 09/18/18 09/19/18 23:59 23:59 23:59 23:59 Intake Total 5721 523 3422 345 Output Total 316 379 8198 300 Balance 535 360 -390 45 Weight 219 lb 221 lb 14.4 oz General lethargic CV S1 s2 irregular Lungs coarse breath sounds ABdomen soft NT/ND Extremities no pedal edema CBCD WBC 16.1 K/mm3 (4.0-10.0) H 09/19/18 05:30 RBC 3.86 M/mm3 (3.60-5.2) 09/19/18 05:30 Hgb 11.4 GM/dL (10.7-15.3) 09/19/18 05:30 Hct 34.1 % (32.4-45.2) 09/19/18 05:30 MCV 88.2 fl (80-96) 09/19/18 05:30 MCHC 33.5 g/dl (32.0-36.0) 09/19/18 05:30 RDW 14.9 % (11.6-15.6) 09/19/18 05:30 Plt Count 380 K/MM3 (134-434) 09/19/18 05:30 MPV 7.4 fl (7.5-11.1) L 09/19/18 05:30 CMP Sodium 139 mmol/L (136-145) 09/19/18 05:30 Potassium 3.6 mmol/L (3.5-5.1) 09/19/18 05:30 Chloride 104 mmol/L (98-107) 09/19/18 05:30 Carbon Dioxide 26 mmol/L (21-32) 09/19/18 05:30 Anion Gap 9 MMOL/L (8-16) 09/19/18 05:30 BUN 25 mg/dL (7-18) H 09/19/18 05:30 Creatinine 0.8 mg/dL (0.55-1.3) 09/19/18 05:30 Creat Clearance w eGFR 71.76 (>60) 09/19/18 05:30 Calcium 8.3 mg/dL (8.5-10.1) L 09/19/18 05:30 Total Bilirubin 1.0 mg/dL (0.2-1) 09/18/18 05:30 AST 42 U/L (15-37) H 09/18/18 05:30 ALT 15 U/L (13-61) 09/18/18 05:30 Alkaline Phosphatase 142 U/L (45-117) H 09/18/18 05:30 Total Protein 7.1 g/dl (6.4-8.2) 09/18/18 05:30 Albumin 2.3 g/dl (3.4-5.0) L 09/18/18 05:30 Assessment and plan 67 year old female with history of Breast Ca s/p Lumpectomy, recently diagnosed Uterine Ca (scheduled for Surgery at [facility] 09/22/18), presented with Dyspnea, found to be hypoxic and tachycardic at [facility] ED with Bilateral Submassive PE, and transferred to [facility] ICU. 1. Acute Bilateral Submassive PE with RLE DVT- evidence of R heart strain with tropinemia. currently 92% on 40% face mask. will need catheter directed thrombolysis. awaiting transfer to [facility] for treatement. s/p IVC filter placed here on 09/15 2. Afib iwth RVR- new onset. likely due to PE and heart strain. on cardizem ggt. on full dose lovenox. cardio on board. cardiac monitoring 3. Uterine ca 4. Hypothyroid- Lt4 5. HTN- currently normotensive. hold oral agents 6. dyslipidemia- statin 7. Breast ca- Continue Anastrazole. 8. accepted to [facility] by Dr Black. awaiting bed availability. will call today to determine status Visit type - Emergency Visit Emergency Visit: Yes ED Registration Date: 09/14/18 Care time: The patient presented to the Emergency Department on the above date and was hospitalized for further evaluation of their emergent condition. - New Patient This patient is new to me today: Yes Date on this admission: 09/19/18 - Critical Care Critical Care patient: Yes Total Critical Care Time (in minutes): 40 Critical Care Statement: The care of this patient involved high complexity decision making to prevent further life threatening deterioration of the patient 's condition and/or to evaluate & treat vital organ system(s) failure or risk of failure. - Discharge Referral Referred to [facility] Med [facility] No
[2018-09-19] MEDS ORDERED: PT OWN MED DRAWER 7, Y5N ONE (08:55)
--- NOTE | 2018-09-19 08:56 | PN ---
Progress Note, Physician Chief Complaint: seen and examined in ICU Denies CP Mild dyspnea TELE: rate controlled AF - Current Medication List Current Medications: Active Medications Acetaminophen (Tylenol -) 650 mg PO Q6H PRN PRN Reason: FEVER Last Admin: 09/15/18 17:13 Dose: 650 mg Anastrozole (Arimidex -) 1 mg PO DAILY [facility] Last Admin: 09/18/18 09:06 Dose: 1 mg Chlorhexidine Gluconate (Hibiclens For Decolonization -) 1 applic TP HS [facility] Last Admin: 09/18/18 21:45 Dose: 1 applic Enoxaparin Sodium (Lovenox -) 100 mg SQ BID@0700,1900 [facility] Last Admin: 09/19/18 06:01 Dose: 100 mg Diltiazem HCl 125 mg/ Sodium (Chloride) 125 mls @ 5 mls/hr IVPB TITR [facility]; Protocol Last Admin: 09/19/18 03:00 Dose: 10 mg/hr, 10 mls/hr Levothyroxine Sodium (Synthroid -) 25 mcg PO DAILY@0700 [facility] Last Admin: 09/19/18 06:01 Dose: 25 mcg Metoprolol Succinate (Toprol Xl -) 25 mg PO BID [facility] Last Admin: 09/18/18 21:45 Dose: 25 mg Mupirocin (Bactroban Ointment (For Decolonization) -) 1 applic NS BID [facility] Stop: 09/20/18 09:59 Last Admin: 09/18/18 21:45 Dose: 1 applic Pantoprazole Sodium (Protonix -) 40 mg PO DAILY [facility] Last Admin: 09/18/18 09:06 Dose: 40 mg Rosuvastatin Calcium (Crestor -) 5 mg PO HS [facility] Last Admin: 09/18/18 23:41 Dose: 5 mg - Objective Vital Signs: Vital Signs Temperature 98 F 09/19/18 07:10 Pulse Rate 88 09/19/18 08:00 Respiratory Rate 22 H 09/19/18 08:00 Blood Pressure 117/79 09/19/18 08:00 O2 Sat by Pulse Oximetry (%) 94 L 09/19/18 08:33 Constitutional: Yes: No Distress, Calm Cardiovascular: Yes: Pulse Irregular Respiratory: Yes: Other (decreased basilar breath sounds, no wheezing) Gastrointestinal: Yes: Soft, Abdomen, Obese Edema: Yes Edema: LLE: 1+, RLE: 1+ Neurological: Yes: Alert, Oriented ...Motor Strength: WNL Labs: CBC, BMP 09/19/18 05:30 09/19/18 05:30 INR, PTT INR 1.28 (0.83-1.09) H 09/15/18 05:30 Laboratory Tests 09/19/18 09/19/18 05:30 05:30 WBC 16.1 H Hgb 11.4 Plt Count 380 Sodium 139 Potassium 3.6 Creatinine 0.8 - ....Imaging EKG: Image Reviewed Assessment/Plan IMP/PLAN: 1. Pulmonary embolism, DVT: - cont ac, on Lovenox BID. - echo shows right heart strain 2/2 PE. No signs RHF presently. Cont management of PE. Will need f/u echo as outpt to monitor RV. -As noted in Critical Care note, plan is to transfer to tertiary care facility for catheter directed thrombolysis. 2. Elevated trop: - likely demand in setting of PE - no LV segmental wall motion abnormalities - no signs acs - cont to treat PE 3. AF: -new onset here with rvr, in setting acute PE -Cont metoprolol, cardizem gtts -cont ac -cont tele
[2018-09-19] MEDS: ANASTROZOLE 1 MG TABLET PO SCH (09:09)
[2018-09-19] MEDS: PANTOPRAZOLE 40 MG TABLET (FP) PO SCH (09:09)
[2018-09-19] MEDS: MUPIROCIN 2% TOPICAL OINTMENT FOR DECOLONIZATION NS SCH (09:09)
[2018-09-19] MEDS: metoPROLOL SUCCINATE 25 MG TAB.SR.24H (FP) PO SCH (09:09)
--- NOTE | 2018-09-19 09:53 | PN ---
Teaching Attending Note Name of Resident: Vidhi Vo ATTENDING PHYSICIAN STATEMENT I saw and evaluated the patient. I reviewed the resident's note and discussed the case with the resident. I agree with the resident's findings and plan as documented. SUBJECTIVE: Patient seen and examined in the ICU. Less dyspnea at rest. No chest pain or palpitations. Still reports some "soreness" around the bottom of the rib cage. Remains rate controlled on Cardizem drip @ 10mg/hr. OBJECTIVE: Intake & Output 09/16/18 09/17/18 09/18/18 09/19/18 23:59 23:59 23:59 23:59 Intake Total 7436 727 5041 345 Output Total 327 653 1483 300 Balance 535 360 -390 45 Weight 219 lb 221 lb 14.4 oz Last Vital Signs Temp Pulse Resp BP Pulse Ox 98 F 88 22 H 117/79 94 L 09/19/18 07:10 09/19/18 08:00 09/19/18 08:00 09/19/18 08:00 09/19/18 08:33 Active Medications Acetaminophen (Tylenol -) 650 mg PO Q6H PRN PRN Reason: FEVER Last Admin: 09/15/18 17:13 Dose: 650 mg Anastrozole (Arimidex -) 1 mg PO DAILY [facility] Last Admin: 09/19/18 09:09 Dose: 1 mg Chlorhexidine Gluconate (Hibiclens For Decolonization -) 1 applic TP HS [facility] Last Admin: 09/18/18 21:45 Dose: 1 applic Enoxaparin Sodium (Lovenox -) 100 mg SQ BID@0700,1900 [facility] Last Admin: 09/19/18 06:01 Dose: 100 mg Diltiazem HCl 125 mg/ Sodium (Chloride) 125 mls @ 5 mls/hr IVPB TITR [facility]; Protocol Last Admin: 09/19/18 03:00 Dose: 10 mg/hr, 10 mls/hr Levothyroxine Sodium (Synthroid -) 25 mcg PO DAILY@0700 [facility] Last Admin: 09/19/18 06:01 Dose: 25 mcg Metoprolol Succinate (Toprol Xl -) 25 mg PO BID [facility] Last Admin: 09/19/18 09:09 Dose: 25 mg Mupirocin (Bactroban Ointment (For Decolonization) -) 1 applic NS BID [facility] Stop: 09/20/18 09:59 Last Admin: 09/19/18 09:09 Dose: 1 applic Pantoprazole Sodium (Protonix -) 40 mg PO DAILY [facility] Last Admin: 09/19/18 09:09 Dose: 40 mg Rosuvastatin Calcium (Crestor -) 5 mg PO HS [facility] Last Admin: 09/18/18 23:41 Dose: 5 mg Gen: Awake and alert, less tachypneic at rest Heart: RRR Lung: decreased breath sounds at the bases Abd: soft, nontender Ext: no edema Laboratory Results - last 24 hr 09/19/18 09/19/18 05:30 05:30 WBC 16.1 H RBC 3.86 Hgb 11.4 Hct 34.1 MCV 88.2 MCH 29.6 MCHC 33.5 RDW 14.9 Plt Count 380 MPV 7.4 L Sodium 139 Potassium 3.6 Chloride 104 Carbon Dioxide 26 Anion Gap 9 BUN 25 H Creatinine 0.8 Creat Clearance w eGFR 71.76 Random Glucose 91 Calcium 8.3 L Phosphorus 3.4 Magnesium 2.4 ASSESSMENT AND PLAN: Acute Bilateral Submassive Pulmonary Emboli Acute RLE DVT +Troponins likely from above Uterine Cancer h/o Breast Ca HTN Hypothyroidism Hypercholesterolemia - continue anticoagulation with weight based Lovenox - will need catheter directed thrombolysis, unavailable at this facility at this time so will be transfered to [facility] for further intervention. - O2 to keep SpO2 >90%. - Cardizem drip @ 10mg/hr - replete lytes - Patient can be downgraded to Cardiac telemetry for monitoring of Cardizem drip. She has been hemodynamically stable with improving respiratory status Dr Cowan
--- NOTE | 2018-09-19 10:10 | PN ---
Physical Exam: SUBJECTIVE: Patient seen this morning and reports her breathing is about the same. Patient able to tolerate venti mask. OBJECTIVE: Vital Signs Temperature 98 F 09/19/18 07:10 Pulse Rate 88 09/19/18 08:00 Respiratory Rate 22 H 09/19/18 08:00 Blood Pressure 117/79 09/19/18 08:00 O2 Sat by Pulse Oximetry (%) 94 L 09/19/18 08:33 GENERAL: The patient is awake, alert, and fully oriented, in no acute distress. HEAD: Normal with no signs of trauma. EYES: PERRL, extraocular movements intact, NECK: Trachea midline, full range of motion, supple. LUNGS: Breath sounds equal, clear to auscultation bilaterally, no wheezes, no crackles, no accessory muscle use. HEART: Regular rate and rhythm, S1, S2 3+ systolic murmur at upper sternal border ABDOMEN: Soft, nontender, nondistended, normoactive bowel sounds EXTREMITIES: 2+ pulses, warm, well-perfused, no edema. No tenderness PSYCH: Normal mood, normal affect. SKIN: Warm, dry, normal turgor, no rashes or lesions noted CBCD WBC 16.1 K/mm3 (4.0-10.0) H 09/19/18 05:30 RBC 3.86 M/mm3 (3.60-5.2) 09/19/18 05:30 Hgb 11.4 GM/dL (10.7-15.3) 09/19/18 05:30 Hct 34.1 % (32.4-45.2) 09/19/18 05:30 MCV 88.2 fl (80-96) 09/19/18 05:30 MCHC 33.5 g/dl (32.0-36.0) 09/19/18 05:30 RDW 14.9 % (11.6-15.6) 09/19/18 05:30 Plt Count 380 K/MM3 (134-434) 09/19/18 05:30 MPV 7.4 fl (7.5-11.1) L 09/19/18 05:30 CMP Sodium 139 mmol/L (136-145) 09/19/18 05:30 Potassium 3.6 mmol/L (3.5-5.1) 09/19/18 05:30 Chloride 104 mmol/L (98-107) 09/19/18 05:30 Carbon Dioxide 26 mmol/L (21-32) 09/19/18 05:30 Anion Gap 9 MMOL/L (8-16) 09/19/18 05:30 BUN 25 mg/dL (7-18) H 09/19/18 05:30 Creatinine 0.8 mg/dL (0.55-1.3) 09/19/18 05:30 Creat Clearance w eGFR 71.76 (>60) 09/19/18 05:30 Calcium 8.3 mg/dL (8.5-10.1) L 09/19/18 05:30 Total Bilirubin 1.0 mg/dL (0.2-1) 09/18/18 05:30 AST 42 U/L (15-37) H 09/18/18 05:30 ALT 15 U/L (13-61) 09/18/18 05:30 Alkaline Phosphatase 142 U/L (45-117) H 09/18/18 05:30 Total Protein 7.1 g/dl (6.4-8.2) 09/18/18 05:30 Albumin 2.3 g/dl (3.4-5.0) L 09/18/18 05:30 Active Medications Acetaminophen (Tylenol -) 650 mg PO Q6H PRN PRN Reason: FEVER Last Admin: 09/15/18 17:13 Dose: 650 mg Anastrozole (Arimidex -) 1 mg PO DAILY [facility] Last Admin: 09/19/18 09:09 Dose: 1 mg Chlorhexidine Gluconate (Hibiclens For Decolonization -) 1 applic TP HS [facility] Last Admin: 09/18/18 21:45 Dose: 1 applic Enoxaparin Sodium (Lovenox -) 100 mg SQ BID@0700,1900 [facility] Last Admin: 09/19/18 06:01 Dose: 100 mg Diltiazem HCl 125 mg/ Sodium (Chloride) 125 mls @ 5 mls/hr IVPB TITR [facility]; Protocol Last Admin: 09/19/18 03:00 Dose: 10 mg/hr, 10 mls/hr Levothyroxine Sodium (Synthroid -) 25 mcg PO DAILY@0700 [facility] Last Admin: 09/19/18 06:01 Dose: 25 mcg Metoprolol Succinate (Toprol Xl -) 25 mg PO BID [facility] Last Admin: 09/19/18 09:09 Dose: 25 mg Mupirocin (Bactroban Ointment (For Decolonization) -) 1 applic NS BID [facility] Stop: 09/20/18 09:59 Last Admin: 09/19/18 09:09 Dose: 1 applic Pantoprazole Sodium (Protonix -) 40 mg PO DAILY [facility] Last Admin: 09/19/18 09:09 Dose: 40 mg Rosuvastatin Calcium (Crestor -) 5 mg PO HS [facility] Last Admin: 09/18/18 23:41 Dose: 5 mg ASSESSMENT/PLAN: Patient is a 67 y/o female with a history of remote breast Ca and TABLE TENDER SLUDGE Ca who is here for R LE DVT and R & L pulmonary artery DVT with thin saddle embolus. Neuro - intact - A& O x3 - head CT: no abnormalities Cardio - R heart strain 2/2 to PE - EKG without any abnormalities - Echo: severe tricuspid regurg, RV systolic pressure elevated 50-60, RV severly dilated - continue rosuvastatin 5 mg po hs - new afib, on cardizem drip , rate controlled on medication - patient can be downgraded to tele for further monitoring, has been stable in the ICU Pulm - CTA: acute central pulmonary embolism with right heart strain - patient on 100 lovenox BID - patient received IVC filter 09/15 - patient needs directed thrombolysis at tertiary center - patient on 40 ventimask, maint O2 > 90 GI/ - hx cancer, surgery scheduled for 09/22 at [facility] [place] - continue anastrozole Renal - stable Heme - on ppx with Lovenox 100 BID - US: R common femoral and deep femoral clot Endo - hx hypothyroidism - continue levothyroxine 25 mcg FEN - regular diet - electrolytes stable Dispo : transfer to [facility] [place], patient stable to be trasnfered to tele sister Marielos [phone] Visit type - Emergency Visit Emergency Visit: No - New Patient This patient is new to me today: No - Critical Care Critical Care patient: Yes Total Critical Care Time (in minutes): 40 Critical Care Statement: The care of this patient involved high complexity decision making to prevent further life threatening deterioration of the patient 's condition and/or to evaluate & treat vital organ system(s) failure or risk of failure.
[2018-09-19 18:12] VITALS: BP 126/76; PULSE 96
[2018-09-19 18:13] VITALS: TEMP 97.6
--- NOTE | 2018-09-20 14:39 | DS ---
Physical Exam: SUBJECTIVE: Patient seen and examined at bedside. Patient is less short of breath and has less pain under her chest area compared to yesterday. No acute complaints. OBJECTIVE: Vital Signs Period Temp Pulse Resp BP Sys/Briones Pulse Ox Last 24 Hr 97.6 F 96-100 22-24 126-130/70-76 PHYSICAL EXAM GENERAL: A&Ox3, no acute distress EYES: PERRLA, EOMI ENT: Moist mucus membranes NECK: No JVD LUNGS: CTA, no wheezes HEART: RRR, no murmurs ABDOMEN: Soft, nontender, BS present MUSCULOSKELETAL: No CVA Tenderness EXTREMITIES: 2+ pulses, 1+ edema in RLE NEUROLOGICAL: Cranial nerves II-XII intact HOSPITAL COURSE: Date of Admission:09/14/18 67 year old female with a history of recently diagnosed [place]ER cancer with possible mets and planned [place] [facility] [place] [facility] [place] presented at [facility] due to 2 days of shortness of breath. Patient was tachypniec and hypoxic in ER. She was found to have PE and DVT diagnosed by CTA and venous doppler. She was given 100mg lovenox BID and admitted [facility]'s ICU. She was found to have right heart strain on CTA and echocardiogrphy (severe tricuspid regurg, RV systolic pressure elevated 50-60, RV severly dilated). Due to her doctor's residing [place] [facility] [place] was transferred there for catheter directed thrombectomy and further care of her gynecologic malignancy. Date of Discharge: 09/20/18 Minutes to complete discharge: 35 Discharge Summary Reason For Visit: BILARERAL P E ,SOB Condition: Guarded - Instructions Diet, Activity, Other Instructions: You came in for shortness for shortness of breath. We imaged your chest and you were found to have a blood clot in your lungs. We imaged your legs and you were found to have blood clots in your right leg. We imaged your heart and noticed that it has been adversely affected by the presence of the clot. We treated you with blood thinners and placed and IVC filter to help prevent the spread of clots. We are transferring you to [facility] for higher level of care to remove the clots from your lungs. Disposition: TRANSFER ACUTE CARE/OTHER HOSP - Home Medications Comprehensive Discharge Medication List: Ambulatory Orders Anastrozole [Arimidex] 1 mg PO DAILY 09/14/18 Atenolol/Chlorthalidone [Atenolol-Chlorthalidone 100-25] 1 each PO DAILY Levothyroxine [Synthroid -] 25 mcg PO DAILY 09/14/18 Omeprazole 20 mg PO DAILY 09/14/18 Rosuvastatin [Crestor -] 5 mg PO HS 09/14/18 This patient is new to me today: No Emergency Visit: No Critical Care patient: Yes Total Critical Care Time (in minutes): 40 Critical Care Statement: The care of this patient involved high complexity decision making to prevent further life threatening deterioration of the patient 's condition and/or to evaluate & treat vital organ system(s) failure or risk of failure. - Discharge Referral Referred to [facility] No
--- NOTE | 2018-10-08 14:50 | EKG ---
Test Reason : Blood Pressure : / mmHG Vent. Rate : 129 BPM Atrial Rate : 131 BPM P-R Int : 000 ms QRS Dur : 084 ms QT Int : 384 ms P-R-T Axes : 000 067 142 degrees QTc Int : 562 ms ATRIAL FIBRILLATION WITH RAPID VENTRICULAR RESPONSE T WAVE ABNORMALITY, CONSIDER ANTEROLATERAL ISCHEMIA ABNORMAL ECG WHEN COMPARED WITH ECG OF 15-SEP-2018 08:48, ATRIAL FIBRILLATION HAS REPLACED SINUS RHYTHM VENT. RATE HAS INCREASED BY 52 BPM NONSPECIFIC T WAVE ABNORMALITY, WORSE IN INFERIOR LEADS T WAVE INVERSION NOW EVIDENT IN LATERAL LEADS Confirmed by MARGARET BENITEZ MD ([id number]) on 10/08/2018 2:50:00 PM Referred By: AL SNEED Confirmed By:MARGARET BENITEZ MD
== END 2018-09-19 18:25 | disposition short-term general hospital (02) | DRG 167 ==
LOC: FER 16:06 → JICU 21:48
PROVIDERS: ADMIT Internal Medicine; ATTEND Internal Medicine
PROC: 06H03DZ Insertion of Intraluminal Device into Inferior Vena Cava, Percutaneous Approach (ICD-10-PCS; principal; 2018-09-15)
DX: I26.92 Saddle embolus of pulmonary artery without acute cor pulmonale (principal); I82.411 Acute embolism and thrombosis of right femoral vein; I24.8 Other forms of acute ischemic heart disease; C55 Malignant neoplasm of uterus, part unspecified; I36.1 Nonrheumatic tricuspid (valve) insufficiency; I48.91 Unspecified atrial fibrillation; I10 Essential (primary) hypertension; E03.9 Hypothyroidism, unspecified; E78.5 Hyperlipidemia, unspecified; K21.9 Gastro-esophageal reflux disease without esophagitis; E66.9 Obesity, unspecified; Z68.34 Body mass index [BMI] 34.0-34.9, adult; Z85.3 Personal history of malignant neoplasm of breast; Z87.891 Personal history of nicotine dependence; R09.02 Hypoxemia; E83.42 Hypomagnesemia; I45.81 Long QT syndrome; E87.6 Hypokalemia; F41.9 Anxiety disorder, unspecified
CPT/HCPCS: 36415; 36600; 37191; 70450-TC; 71045-TC-FY; 71275-TC; 76000-TC-FY; 76998-TC; 80048; 80053; 82550; 82803; 83735; 83880; 84100; 84132; 84436; 84443; 84481; 84484; 85025; 85027; 85610; 85730; 93005; 93010; 93306-TC; 93970-TC; 99283-25; C1769; C1880

== ENCOUNTER 2018-12-01 17:29 | Emergency (ER) | payer OTHER ==
[2018-12-01 17:47] VITALS: TEMP 98.1; BMI 29.5
[2018-12-01] MEDS ORDERED: HYDROCORTISONE SOD SUCCINATE 100 MG/2 ML VIAL IVPB ONE (18:18)
[2018-12-01] MEDS ORDERED: SODIUM CHLORIDE 500 ML IV STA (18:36)
--- NOTE | 2018-12-01 18:50 | PDOC ---
Documentation entered by Narda Lim SCRIBE, acting as scribe for Chris Santos MD. Chris Santos MD: This documentation has been prepared by the Carina norotn Xhesika, SCRIBE, under my direction and personally reviewed by me in its entirety. I confirm that the documentation accurately reflects all work, treatment, procedures, and medical decision making performed by me. History of Present Illness - General Chief Complaint: Overdose Stated Complaint: TOOK TO MUCH ZOFRAN Time Seen by Provider: 12/01/18 17:36 History Source: Patient Exam Limitations: No Limitations - History of Present Illness Initial Comments: 12/01/18 18:19 The patient is a 68 year old female, with a significant PMH of A-fib (diagnosed 3 months ago, on Lovenox) , HTN, HL, hypothyroidism, breast ca (s/p lumpectomy) , and ovarian cancer (chemo and radiation) who presents to the emergency department with an overdose of medication. The patient states she took 5 pills of Zofran (8mg per pill) in the morning at 8am and 5 pills last night instead of her steroid medication. The patient states she just had her 3rd infusion today at 9am and everything went well. The patient states she went home after her infusion, ate ham & cheese with macaroni pasta and did not endorse any pain or side effects. The patient called her PCP at [place] and was advised to come to the ED for further evaluation and monitoring. The patient denies any complaints at the moment. The patient denies chest pain, shortness of breath, headache and dizziness. Denies fever, chills, nausea, vomiting, diarrhea and constipation. Denies dysuria, frequency, urgency and hematuria. Allergies: NKA Past surgical history: lumpectomy Past History - Past Medical History Allergies/Adverse Reactions: Allergies Allergy/AdvReac Type Severity Reaction Status Date / Time No Known Allergies Allergy Verified 12/01/18 17:30 Home Medications: Ambulatory Orders Levothyroxine [Synthroid -] 25 mcg PO DAILY 09/14/18 Omeprazole 20 mg PO DAILY 09/14/18 Rosuvastatin [Crestor -] 5 mg PO HS 09/14/18 Dexamethasone [Decadron -] 20 mg PO ASDIR 12/01/18 Diltiazem HCl [Diltiazem 24Hr Cd] 180 mg PO DAILY 12/01/18 Ondansetron [Ondansetron Odt] 40 mg PO BID 12/01/18 Cancer: Yes (OVARIAN) COPD: No GI Disorders: Yes (GERD) HTN: Yes Hypercholesterolemia: Yes Thyroid Disease: Yes - Suicide/Smoking/Psychosocial Hx Smoking History: Former smoker Have you smoked in the past 12 months: No Number of Cigarettes Smoked Daily: 0 If you are a former smoker, when did you quit?: 1980S Information on smoking cessation initiated: No Hx Alcohol Use: No Drug/Substance Use Hx: No Review of Systems - Review of Systems Able to Perform ROS?: Yes Comments:: 12/01/18 18:21 GENERAL/CONSTITUTIONAL: No fever or chills. No weakness. (+) overdose on medication. HEAD, EYES, EARS, NOSE AND THROAT: No change in vision. No ear pain or discharge. No sore throat. CARDIOVASCULAR: No chest pain or shortness of breath. RESPIRATORY: No cough, wheezing, or hemoptysis. GASTROINTESTINAL: No nausea, vomiting, diarrhea or constipation. GENITOURINARY: No dysuria, frequency, or change in urination. MUSCULOSKELETAL: No joint or muscle swelling or pain. No neck or back pain. SKIN: No rash NEUROLOGIC: No headache, vertigo, loss of consciousness, or change in strength/ sensation. ENDOCRINE: No increased thirst. No abnormal weight change. HEMATOLOGIC/LYMPHATIC: No anemia, easy bleeding, or history of blood clots. ALLERGIC/IMMUNOLOGIC: No hives or skin allergy. *Physical Exam - Vital Signs Last Vital Signs Temp Pulse Resp BP Pulse Ox 98.1 F 85 20 144/92 97 12/01/18 17:30 12/01/18 17:30 12/01/18 17:30 12/01/18 17:30 12/01/18 17:30 - Physical Exam Comments: 12/01/18 18:30 GENERAL: Awake, alert, and fully oriented, in no acute distress HEAD: No signs of trauma EYES: PERRLA, EOMI, sclera anicteric, conjunctiva clear ENT: Auricles normal inspection, hearing grossly normal, nares patent, oropharynx clear without exudates. Moist mucosa NECK: Normal ROM, supple, no lymphadenopathy, JVD, or masses LUNGS: Breath sounds equal, clear to auscultation bilaterally. No wheezes, and no crackles HEART: Regular rate and rhythm, normal S1 and S2, no murmurs, rubs or gallops. No specific SVT changes in the Lateral wall. ABDOMEN: Soft, nontender, normoactive bowel sounds. No guarding, no rebound. No masses EXTREMITIES: Normal range of motion, no edema. No clubbing or cyanosis. No cords, erythema, or tenderness NEUROLOGICAL: Cranial nerves II through XII grossly intact. Normal speech, normal gait SKIN: Warm, Dry, normal turgor, no rashes or lesions noted. ED Treatment Course - LABORATORY CBC & Chemistry Diagram: 12/01/18 18:39 12/01/18 18:39 Medical Decision Making - Medical Decision Making 12/01/18 18:27 [facility] poison control center contacted by phone. Discussed half-life of Zofran, which is approximately 2 hours. Recommended cardiac monitoring and observation for 4 hours post ingestion. Since the patient ingested the Zofran at 8 AM, it is well past the observation window at this point, EKG appears stable, and she is asymptomatic. 12/01/18 18:40 EKG shows normal sinus rhythm at 74/m. Normal axes and intervals. ST T-wave flattening in the lateral leads, nonspecific. No ST elevations. No old EKG available for comparison. CBC and chemistries show no significant abnormalities Patient remains asymptomatic. 10 hours after ingestion of 40 mg of Zofran by mistake. Appears stable. Discharged to follow up primary physician or return to ER if any symptoms develop. *DC/Admit/Observation/Transfer Diagnosis at time of Disposition: Accidental medication overdose Qualifiers: Encounter type: initial encounter Qualified Code(s): T50.901A - Poisoning by unspecified drugs, medicaments and biological substances, accidental ( unintentional), initial encounter - Discharge Dispostion Disposition: HOME Condition at time of disposition: Stable Decision to Admit order: No - Referrals - Patient Instructions Additional Instructions: Return to ER if any symptoms develop, especially chest pain, palpitations, lightheadedness, dizziness, or visual symptoms. Otherwise follow-up with your primary physician. Be extremely cautious about the names and doses of your medication, being sure to check and I will check before each administration. - Post Discharge Activity
[2018-12-01 19:06] LABS: BASO % 0.3 % (0-2.0); HEMOGLOBIN 11.7 GM/dl (10.7-15.3); LYMPH % 9.2 % (8-40); MCH 30.6 pg (25.7-33.7); MCHC 33.3 g/dl (32.0-36.0); MEAN CELL VOLUME 91.9 fl (80-96); MEAN PLT VOLUME 7.2 fl (7.5-11.1); MONO % 0.6 % (3.8-10.2); NEUT % 89.9 % (42.8-82.8); PLATELET COUNT 230 K/MM3 (134-434); RBC 3.81 M/mm3 (3.60-5.2); RDW 22.1 % (11.6-15.6); WHITE BLOOD COUNT 5.9 K/mm3 (4.0-10.8)
[2018-12-01 19:14] LABS: ALBUMIN 3.3 g/dl (3.4-5.0); BILIRUBIN,TOTAL 0.7 mg/dl (0.2-1); CALCIUM 8.6 mg/dl (8.5-10); CREATININE 0.8 mg/dl (0.55-1.3); POTASSIUM 3.7 mmol/L (3.5-5.1)
[2018-12-01 20:48] VITALS: BP 146/83; PULSE 74
--- NOTE | 2018-12-02 17:12 | EKG ---
Test Reason : Blood Pressure : / mmHG Vent. Rate : 074 BPM Atrial Rate : 074 BPM P-R Int : 142 ms QRS Dur : 072 ms QT Int : 520 ms P-R-T Axes : 038 055 102 degrees QTc Int : 577 ms NORMAL SINUS RHYTHM T WAVE ABNORMALITY, CONSIDER LATERAL ISCHEMIA ABNORMAL ECG WHEN COMPARED WITH ECG OF 16-SEP-2018 03:40, SINUS RHYTHM HAS REPLACED ATRIAL FIBRILLATION VENT. RATE HAS DECREASED BY 55 BPM NONSPECIFIC T WAVE ABNORMALITY, IMPROVED IN INFERIOR LEADS NONSPECIFIC T WAVE ABNORMALITY HAS REPLACED INVERTED T WAVES IN ANTEROLATERAL LEADS Confirmed by PADDY ENNIS MD ([id number]) on 12/02/2018 5:12:04 PM Referred By: MD FLORES Confirmed By:PADDY ENNIS MD
== END 2018-12-01 20:45 | disposition home or self-care (01) ==
LOC: FER 17:29
PROC: 3E0337Z Introduction of Electrolytic and Water Balance Substance into Peripheral Vein, Percutaneous Approach (ICD-10-PCS; principal; 2018-12-01)
DX: T45.0X1A Poisoning by antiallergic and antiemetic drugs, accidental (unintentional), initial encounter (principal); X58.XXXA Exposure to other specified factors, initial encounter; Y93.9 Activity, unspecified; I48.91 Unspecified atrial fibrillation; I10 Essential (primary) hypertension; E78.5 Hyperlipidemia, unspecified; E03.9 Hypothyroidism, unspecified; Z85.3 Personal history of malignant neoplasm of breast; Z87.891 Personal history of nicotine dependence; E07.9 Disorder of thyroid, unspecified
CPT/HCPCS: 36415; 80053; 85025; 93005; 99283-25